=== PATIENT | male | born 1965 | race Caucasian/White ===

== ENCOUNTER 2018-07-10 10:58 | Outpatient (CLI) | payer BC ==
[~2018-07-10] VITALS: Ht 182.9 cm; Wt 87.3 kg
--- NOTE | ~2018-07-10 | HEMODYNAMI ---
PATIENT:NATALI RAPHAEL MEDICAL RECORD: [id number] : 63 LOCATION:D.CAT ADMISSION DATE: 07/10/18 Generatedon:07/10/201814:19 Patient name: NATALI RAPHAEL Patient #: [id number] SSN: : 1965 Date of study: 07/10/2018 Page: Of Hemodynamic Procedure Report Patient Data Patient Demographics Procedure consent was obtained First Name: NATALI Gender: Male Last Name: IJEOMA : 1965 [facility] Initial: TAMIKA Age: 52 year(s) Patient #: [id number] Race: Unknown Additional ID: [id number] Contact details Address: [address] [place] [address] State: [place] City: [facility] Zip code: [address] Past Medical History Allergies Allergen Reaction Date Comments Reported Other allergy 07/10/2018 Klonopin, Soma, Pravastatin Admission Admission Data Admission Date: 07/10/2018 Admission Time: 10:58 Height (in.): 72 BSA: 2.09 (m2) Height (cm.): 182.88 BMI: 25.9 (kg/m2) Weight (lbs.): 191 Weight (kg.): 86.64 Procedure Procedure Types Cath Procedure Diagnostic Procedure [facility] w/Coronaries Aortic Root Angiography Sedation Charges Moderate Sedation up to 15 minutes Procedure Description Procedure Date Procedure Date: 07/10/2018 Procedure Start Time: 14:00 Procedure End Time: 14:15 Procedure Staff Name Function Cassius Butt MD Performing Physician Lluvia Castro RT Monitor David Porter RN Nurse Aaron Arrington RT Scrub Procedure Data Cath Procedure Fluoroscopy Diagnostic fluoroscopy Total fluoroscopy Time: 2.4 time: 2.4 min min Diagnostic fluoroscopy Total fluoroscopy dose: 515 dose: 515 mGy mGy Contrast Material Contrast Material Type Amount (ml) Isovue 300 91 Entry Location Entry Primary Successful Side Size Upsize Upsize Entry Closure Succes sful Closure Location (Fr) 1 (Fr) 2 (Fr) Remarks Device Remarks Femoral Right 5 Fr Exoseal artery Estimated blood loss: 10 ml Diagnostic catheters Device Type Used For End Catheter Placement MULTIPACK JL 4.0 5Fr Procedure catheter MULTIPACK 3DRC 5Fr Procedure catheter MULTIPACK Pigtail 5 Fr Procedure catheter Procedure Complications No complications Procedure Medications Medication Administration Route Dosage 0.9% NaCl I.V. 100 ml/hr Oxygen etCO2 Nasal cannula 2 l/min Heparin Flush Bag added to field 2 bags (1000units/500ml NS) Lidocaine 2% added to field 20 Versed I.V. 2 mg Fentanyl I.V. 100 mcg Versed I.V. 2 mg Fentanyl I.V. 100 mcg Versed I.V. 1 mg Hemodynamics Rest BSA: 2.09 (m2) O2 Consumption: Estimated: 266.09 (ml/min) O2 Consumption indexed : Estimated:127.32 (ml/min/m) Heart Rate: 92 (bpm) Pressure Samples Time Site Value (mmHg) Purpose Heart Use Rate(bpm) 14:04 LV 129/-7,11 EDP 92 14:05 AO 114/65(86) Pullback 98 14:05 LV 135/1,10 Pullback 98 Gradients Valve Time Site 1 Site 2 Mean SEP/DFP Peak To Heart Use (mmHg) (sec/min) Peak Rate (mmHg) (bpm) Aortic 14:05 LV AO 19 25 21 98 135/1,10 114/65(86) Calculations Valve P-P Mean Valve Index Valve Source Name Gradient Area Flow (cm2) Aortic 21 19 21 19 Snapshots Pre Cath Intra NCS Post Cath Vital Signs Time Heart Resp SPO2 etCO2 NIBP (mmHg) Rhythm Pain Sedation Rate (ipm) (%) (mmHg) Status Level (bpm) 13:28:00 83 13 96 0 132/74(103) NSR 0 (11) 10(A) , No pain 13:32:08 81 17 92 0 138/81(104) NSR 0 (11) 10(A) , No pain 13:36:18 95 12 97 35.4 128/79(118) NSR 0 (11) 10(A) , No pain 13:40:26 77 11 95 31.6 124/77(86) NSR 0 (11) 10(A) , No pain 13:44:33 91 12 94 36.9 121/75(90) NSR 0 (11) 10(A) , No pain 13:48:42 89 12 95 29.3 136/68(109) NSR 0 (11) 10(A) , No pain 13:52:53 85 15 95 36.8 110/73(94) NSR 0 (11) 10(A) , No pain 13:56:55 101 13 95 36.1 129/75(89) NSR 0 (11) 10(A) , No pain 14:01:11 98 14 94 27 128/59(94) NSR 0 (11) 9(A) , No pain 14:05:21 100 14 95 37.6 110/74(94) NSR 0 (11) 9(A) , No pain 14:09:23 97 16 94 37.6 116/74(90) NSR 0 (11) 9(A) , No pain 14:13:26 91 16 94 35.4 124/75(88) NSR 0 (11) 10(A) , No pain Medications Time Medication Route Dose Verified Delivered Reason Notes Eff ectiveness by by 13:26:15 0.9% NaCl I.V. 100 David David Per ml/hr Charlotte Porter physician RN RN 13:26:25 Oxygen etCO2 2 David David for low 02 Nasal l/min Lorigan Lorigan sats cannula RN RN 13:26:37 Heparin Flush added 2 David David used for Bag to bags Lorigan Lorigan procedure (1000units/500ml field RN RN NS) 13:26:46 Lidocaine 2% added 20ml David David for local to vial Lorigan Lorigan anesthetic field RN RN 13:50:40 Versed I.V. 2 mg David David for Lorigan Lorigan sedation RN RN 13:50:49 Fentanyl I.V. 100 David David for mcg Lorigan Lorigan sedation RN RN 13:56:10 Versed I.V. 2 mg David David for Lorigan Lorigan sedation RN RN 13:56:19 Fentanyl I.V. 100 David David for mcg Lorigan Lorigan sedation RN RN 13:58:13 Versed I.V. 1 mg David David for Lorigan Lorigan sedation RN elementary school registrar Log Time Note 13:14:58 Patient Height : 72 inches 13:15:01 Patient Weight : 191 lbs 13:15:40 Diagnostic Cath status Elective 13:15:43 David Porter RN sent for patient. Start room use. 13:15:44 Time tracking: Regular hours (M-F 7:00 - 5:00) 13:16:38 Plan of Care:Hemodynamics will remain stable., Cardiac rhythm will remain stable., Comfort level will be maintained., Respiratory function will remain adequate., Patient/ family verbilizes understanding of procedure., Procedure tolerated without complication., Recovers from procedure without complications.. 13:16:59 Patient received from Pre/Post Procedure Room to CCL 2 Alert and oriented. Tansferred to table in Supine position. 13:17:00 Warm blankets applied, and jesús hugger turned on for patient comfort. 13:17:01 Correct patient and procedure confirmed by team. 13:17:03 Signed procedure consent form obtained from patient. 13:17:09 ECG and BP/O2 sat monitors applied to patient. 13:26:15 0.9% NaCl 100 ml/hr I.V. was administered by David Porter RN; Per physician; 13:26:25 Oxygen 2 l/min etCO2 Nasal cannula was administered by David Porter RN; for low 02 sats; 13:26:37 Heparin Flush Bag (1000units/500ml NS) 2 bags added to field was administered by David Porter RN; used for procedure; 13:26:46 Lidocaine 2% 20ml vial added to field was administered by David Porter RN; for local anesthetic; 13:26:54 Vital chart was started 13:31:40 H&P Date Dictated: 07/09/2018 Within 30 days and on chart., H&P Addendum completed by physician on day of procedure. (MUST COMPLETE FOR ALL OUTPATIENTS). 13:32:19 Pre-procedure instructions explained to patient. 13:32:25 Family in waiting room. 13:32:26 Patient NPO since Midnight. 13:33:11 Patient allergic to Other allergyKlonopin, Soma, Pravastatin 13:33:18 Is the patient allergic to Iodine/contrast media? No. 13:33:20 Was the patient premedicated? Yes 13:33:21 Is patient on blood thinner?No 13:33:23 Patient diabetic? No. 13:33:28 Snore? No 13:33:29 Sleep apnea? No 13:33:35 Dentures? No ? 13:33:41 Patient pain scale 0/10 ?. 13:33:46 IV patent on arrival in left forearm with 0.9% NaCl at [facility]. 13:33:50 Lab results completed and on chart. 13:34:08 Right groin area was prepped with chlora-prep and draped in sterile fashion 13:34:08 Alarms reviewed by R. N. 13:34:09 Sharps counted by scrub and verified by R.N. 13:34:10 Physician paged 13:34:16 Physician arrived 13:39:00 --------ALL STOP TIME OUT------ 13:39:01 Final Timeout: patient, procedure, and site verified with staff and physician. All members of the team are in agreement. 13:39:03 Right groin site verified by team. 13:39:19 Fire Safety Assessment: A--An alcohol-based skin anteseptic being used preoperatively., B--The operative or invasive procedure is being performed above the xiphoid process or in the oropharynx., C--Open oxygen or nitrous oxide is being used., D--An ESU, laser, or fiber-optic light is being used. 13:39:24 Physical assessment completed. ASA score P 2 - A patient with mild systemic disease as per Cassius Butt MD. 13:39:27 Sedation plan: IV Moderate Sedation Medication:Versed, Fentanyl 13:39:32 Use device set Femoral Dx 13:39:33 ACIST Syringe (53104) opened to sterile field. 13:39:34 Bag Decanter () opened to sterile field. 13:39:34 Medline Cath Pack ([id number]) opened to sterile field. 13:39:35 DIAGNOSTIC WIRE .035 260cm J wire ([id number]) opened to sterile field. 13:39:37 ACIST Hand Control (67967) opened to sterile field. 13:39:37 ACIST Manifold (15445) opened to sterile field. 13:39:38 DIAGNOSTIC Multipack 5Fr catheter set (PM7977) opened to sterile field. 13:39:39 Tegaderm 4 x 4 (1626W) opened to sterile field. 13:39:41 SHEATH 5FR [place] ([id number]) opened to sterile field. 13:40:17 Zero performed for pressure channel P1 13:40:27 Zero performed for pressure channel P1 13:40:33 Zero performed for pressure channel P1 13:40:41 Zero performed for pressure channel P1 13:50:40 Versed 2 mg I.V. was administered by David Porter RN; for sedation; 13:50:49 Fentanyl 100 mcg I.V. was administered by David Porter RN; for sedation; 13:56:10 Versed 2 mg I.V. was administered by David Porter RN; for sedation; 13:56:19 Fentanyl 100 mcg I.V. was administered by David Porter RN; for sedation; 13:58:13 Versed 1 mg I.V. was administered by David Porter RN; for sedation; 13:58:51 Zero performed for pressure channel P1 13:59:03 Zero performed for pressure channel P1 13:59:17 Zero performed for pressure channel P1 13:59:30 Procedure started. 13:59:30 Full Disclosure recording started 14:00:18 Local anesthetic to right femoral artery with Lidocaine 2% by Cassius Butt MD.INITIAL ACCESS ONLY 14:00:30 A 5 Fr sheath was inserted into the Right Femoral artery 14:02:29 A MULTIPACK JL 4.0 5Fr catheter was advanced over the wire and used for Procedure. 14:02:36 LCA angiography performed. 14:02:52 Catheter removed. 14:03:04 A MULTIPACK 3DRC 5Fr catheter was advanced over the wire and used for Procedure. 14:03:07 RCA angiography performed. 14:03:21 Catheter removed. 14:03:30 A MULTIPACK Pigtail 5 Fr catheter was advanced over the wire and used for Procedure. 14:03:36 LV angiography performed. 14:05:01 EF : 55 % 14:05:16 LV angiography performed. 14:05:22 LV hemodynamics recorded. 14:05:29 Aortic Root visualized 14:10:59 Catheter removed. 14:11:31 EXOSEAL 5Fr (EX500) opened to sterile field. 14:11:59 Sheath removed intact; hemostasis achieved with Exoseal to the Right Femoral artery. 14:12:02 Procedure ended.(Physican Out) 14:12:31 Fluoroscopy time 02.40 minutes. 14:12:37 Flurop Dose total: 515 14:12:38 Fluoroscopy dose: 515 mGy 14:12:42 Contrast amount:Isovue 300 91ml. 14:12:43 Sharps counted by scrub and verified by R.N. 14:12:45 Insertion/operative site no bleeding no hematoma. 14:12:49 Post right femoral artery:stable 14:12:51 Post Procedure Pulses reassessed and unchanged 14:12:55 Post-procedure physical assessment completed. ASA score P 2 - A patient with mild systemic disease as per Cassius Butt MD. 14:13:01 Post procedure rhythm: unchanged. 14:13:04 Estimated blood loss: 10 ml 14:13:06 Post procedure instruction explained to patient.Patient verbalizes understanding. 14:13:33 Procedure type changed to Cath procedure, Diagnostic procedure, LHC, LHC w/Coronaries, Aortic Root Angiography, Sedation Charges, Moderate Sedation up to 15 minutes 14:13:34 Procedure and supply charges have been captured, reviewed, submitted and are correct. 14:13:55 Procedure Complication : No complications 14:14:16 Vital chart was stopped 14:14:45 See physician's report for complete and final results. 14:14:47 Report given to Pre/Post Procedure Room. 14:15:05 Patient transfered to Pre/Post Procedure Room with Stretcher. 14:15:07 Procedure ended. 14:15:07 Full Disclosure recording stopped 14:15:16 End room use (Document Last) Device Usage Item Name Manufacture Quantity Catalog Hospital Part Current Minimal L ot# / Number Charge Number Stock Stock Serial# Code ACIST Acist 1 16419 [id number] 922344 618826 20 Syringe Medical (40963) Systems Inc Bag Microtek 1 250613 91101 021387 5 Decanter Medical Inc. () Medline Medline 1 [id number] 659264 79450 948913 5 Cath Pack ([id number]) DIAGNOSTIC St Mario 1 867675 135596 447265 934409 30 WIRE .035 260cm J wire (875079) ACIST Hand Acist 1 03129 459329 222155 428661 5 Control Medical (27076) Systems Inc ACIST Acist 1 74724 669660 756166 553288 5 Manifold Medical (65909) Systems Inc DIAGNOSTIC Cardinal 1 XS0144 007865 56136 387439 30 TagSeats 5Fr catheter set (YJ5544) Tegaderm 4 3M 1 1626W 321179 933973 629847 5 x 4 (1626W) SHEATH 5FR Terumo 1 IXZ097 819883 099602 961248 5 [place] (NWT460) MULTIPACK Cardinal 1 201279 5 JL 4.0 5Fr Health catheter MULTIPACK Cardinal 1 387213 5 3DRC 5Fr Health catheter MULTIPACK Cardinal 1 865180 5 Pigtail 5 Health Fr catheter EXOSEAL 5Fr Cardinal 1 EX500 787439 651134 597784 10 (EX500) Health Signature Audit [place] Stage Time Signature Unsigned Intra-Procedure 07/10/2018 Lluvia Castro 2:19:46 PM RT(R) Signatures Monitor : Lluvia Castro Signature : RT Date : Time : [id number] [place] [address]
[2018-07-10] MEDS ORDERED: ZANAFLEX4 MG PO (11:19)
[2018-07-10] MEDS ORDERED: VOLTAREN75 MG PO (11:19)
[2018-07-10] MEDS ORDERED: OMEPRAZOLE40 MG PO (11:19)
[2018-07-10 11:35] VITALS: BP 137/81; Ht 182.9 cm; Wt 87.3 kg
[2018-07-10 11:41] LABS: BASOPHILS 0.2 % (0-2); HEMATOCRIT 45.6 % (42.0-54.0); HEMOGLOBIN 15.4 g/dL (13.5-17.5); LYMPHOCYTES 24.5 % (15-50); MCH 28.2 pg (26.0-34.0); MCHC 33.8 g/dL (31.0-37.0); MCV 83.4 fL (80.0-100.0); MONOCYTES 8.4 % (2-11); NEUTROPHILS 63.9 % (40-80); PLATELET COUNT 200 10x3/uL (130-400); RBC 5.47 10x6/uL (4.20-6.10); RDW 14.9 % (11.5-14.5); WBC 4.3 10x3/uL (4.8-10.8)
[2018-07-10 11:52] LABS: ANION GAP 16.5 mmol/L (8-16); CALCIUM 9.2 mg/dL (8.5-10.1); CARBON DIOXIDE 24.4 mmol/L (21.0-32.0); CREATININE - SERUM 1.3 mg/dL (0.6-1.3); POTASSIUM - SERUM 3.9 mmol/L (3.5-5.1)
--- NOTE | 2018-07-10 14:50 | NUR ---
2L NC, NO RESP DISTRESS. RIGHT GROIN 5F EXOSEAL CDI, NO BLEEDING OR HEMATOMA NOTED. NO C/O PAIN OR NAUSEA. VSS. FAMILY AT BEDSIDE, CALL LIGHT WITHIN REACH.
--- NOTE | 2018-07-10 15:05 | NUR ---
RIGHT GROIN 6F EXOSEAL CDI, NO BLEEDING OR HEMATOMA NOTED. ROOM AIR WITH NO RESP DISTRESS. VSS. WILL CONTINUE TO MONITOR.
--- NOTE | 2018-07-10 15:35 | NUR ---
HOB ELEVATED 30 DEGREES. RIGHT GROIN 5F EXOSEAL CDI, NO BLEEDING OR HEMATOMA NOTED. SIPPING ON DRINK AND EATING SANDWICH WITH NO C/O NAUSEA. VSS. WILL CONTINUE TO MONITOR.
--- NOTE | 2018-07-10 16:10 | NUR ---
LEFT PIV D/C'D WITH CATHETER INTACT, BAND AID TO SITE. UP TO BEDSIDE TO GET DRESSED. AMBULATED TO RESTROOM.
--- NOTE | 2018-07-10 16:17 | NUR ---
DISCHARGE INSTRUCTIONS GIVEN, VERBALIZED UNDERSTANDING. RIGHT GROIN 5F EXOSEAL CDI, NO BLEEDING NOTED.
--- NOTE | 2018-07-10 16:25 | NUR ---
TAKEN OUT VIA WHEELCHAIR BY CATH JET ENGINE MECHANIC. LEFT FACILITY WITH FAMIL AND ALL PERSONAL BELONGINGS.
== END 2018-07-10 16:25 | disposition home or self-care (01) ==
LOC: D.CATH 10:58
PROVIDERS: Internal Medicine Cardiovascular Disease
DX: I25.10 Atherosclerotic heart disease of native coronary artery without angina pectoris (principal); I35.1 Nonrheumatic aortic (valve) insufficiency

== ENCOUNTER 2018-07-23 11:05 | Outpatient (CLI) | payer BC ==
[~2018-07-23] VITALS: Ht 182.9 cm; Wt 86.4 kg
--- NOTE | ~2018-07-23 | HEMODYNAMI ---
PATIENT:NATALI RAPHAEL MEDICAL RECORD: [id number] : 63 LOCATION:DROSA ADMISSION DATE: 07/23/18 Generatedon:07/23/201813:20 Patient name: NATALI RAPHAEL Patient #: [id number] SSN: : 1965 Date of study: 07/23/2018 Page: Of Hemodynamic Procedure Report Patient Data Patient Demographics Procedure consent was obtained First Name: NATALI Gender: Male Last Name: IJEOMA : 1965 [facility] Initial: TAMIKA Age: 52 year(s) Patient #: [id number] Race: Unknown Additional ID: [id number] Contact details Address: [address] [place] [address] State: [place] City: [facility] Zip code: [address] Past Medical History Allergies Allergen Reaction Date Comments Reported Other allergy 07/10/2018 Klonopin, Soma, Pravastatin Admission Admission Data Admission Date: 07/23/2018 Admission Time: 11:05 Admit Source: Other Lab Results Lab Result Date: 07/23/2018 Lab Result Time: 0:00 CBC Name Units Result Min Max Hemoglobin g/dl 15.5 --(-*--)-- 13.5 17.5 Procedure Procedure Types Cath Procedure Diagnostic Procedure GERALDINE Procedure Description Procedure Date Procedure Date: 07/23/2018 Procedure Start Time: 13:02 Procedure End Time: 13:16 Procedure Staff Name Function Inderjit Valle MD Performing Physician Iban Abreu MD Additional personnel Amrik Davis RT Monitor Gail Coello RT Java Development Manager Belén Bermudez RN Nurse Fidel Clinton Tie In Machine Operator Procedure Data Cath Procedure Fluoroscopy Diagnostic fluoroscopy Total fluoroscopy Time: 0 time: 0 min min Diagnostic fluoroscopy Total fluoroscopy dose: 0 dose: 0 mGy mGy Procedure Complications No complications Procedure Medications Medication Administration Route Dosage 0.9% NaCl I.V. 100 ml/hr Oxygen etCO2 Nasal cannula 2 l/min Refer to Anesthesia Notes for Sedation Medications Hurricaine [place] P.O. 2 Sprays Hemodynamics Rest HGB: 15.5 (g/dl) Heart Rate: 137 (bpm) Snapshots Pre Cath Intra NCS Post Cath Vital Signs Time Heart Resp SPO2 etCO2 NIBP (mmHg) Rhythm Pain Sedation Rate (ipm) (%) (mmHg) Status Level (bpm) 12:44:45 73 16 98 32 163/86(123) NSR 0 (11) 10(A) , No pain 12:49:01 71 13 99 32 153/83(124) NSR 0 (11) 10(A) , No pain 12:53:23 67 14 99 28 154/72(136) NSR 0 (11) 10(A) , No pain 12:57:43 65 13 100 27 153/83(119) NSR 0 (11) 10(A) , No pain 13:02:02 77 13 99 33.1 139/78(107) NSR 0 (11) 10(A) , No pain 13:06:11 70 12 97 15.8 112/60(75) NSR 0 (11) 5(A) , No pain 13:10:21 72 14 97 28 101/52(75) NSR 0 (11) 5(A) , No pain 13:14:29 75 26 98 33.2 120/58(91) NSR 0 (11) 10(A) , No pain Medications Time Medication Route Dose Verified Delivered Reason Notes Effectiv eness by by 12:47:39 0.9% NaCl I.V. 100 Inderjit Melissa used for ml/hr [facility] Demetrio Bermudez procedure MD HANNA 12:47:48 Oxygen etCO2 2 Inderjit Guerreroa used for Nasal l/min [facility] Demetrio Bermudez procedure cannula MD HANNA 12:47:55 Refer to Inderjit Melissa Anesthesia [facility] Demetrio Bermudez Notes for MD HANNA Sedation Medications 12:48:11 Hur[place]aine P[address]O. [address] Inderjit Rocayla used for [place] Sprays St Demetrio Bermudez procedure tick sewer Log Time Note 12:35:12 Admit Source: Other 12:36:02 Diagnostic Cath status Elective 12:36:04 Amrik Davis RT(R) sent for patient. Start room use. 12:36:06 Time tracking: Regular hours (M-F 7:00 - 5:00) 12:36:10 Plan of Care:Hemodynamics will remain stable., Cardiac rhythm will remain stable., Comfort level will be maintained., Respiratory function will remain adequate., Patient/ family verbilizes understanding of procedure., Procedure tolerated without complication., Recovers from procedure without complications.. 12:40:29 Patient received from Pre/Post Procedure Room to CCL 3 Alert and oriented. Tansferred to table in Supine position. 12:40:30 Warm blankets applied, and jesús hugger turned on for patient comfort. 12:40:30 Correct patient and procedure confirmed by team. 12:40:31 Signed procedure consent form obtained from patient. 12:40:32 ECG and BP/O2 sat monitors applied to patient. 12:43:27 Lab Result : Hemoglobin 15.5 g/dl 12:43:31 Baseline sample Acquired. 12:43:31 Vital chart was started 12:43:36 Rhythm: sinus rhythm 12:43:37 Full Disclosure recording started 12:43:42 H&P Date Dictated: 07/23/2018 Within 30 days and on chart.. 12:43:42 Pre-procedure instructions explained to patient. 12:43:43 Pre-op teaching completed and patient verbalized understanding. 12:44:04 Family in waiting room. 12:44:07 Patient NPO since Midnight. 12:44:32 Is patient on blood thinner?No 12:44:34 Patient diabetic? No. 12:44:35 ----Pre-sedation anethsthesia assessment.---- 12:44:38 Previous problem with sedation/anesthesia? No ? 12:44:39 Snore? No 12:44:40 Sleep apnea? No 12:44:41 Deviated septum? No 12:44:43 Opens mouth fully? Yes 12:44:44 Sticks out tongue? Yes 12:44:47 Airway obstruction? No ? 12:44:49 Dentures? No ? 12:44:58 Patient pain scale 0/10 ?. 12:45:08 Baseline sample Acquired. 12:45:21 IV patent on arrival in left forearm with 0.9% NaCl at 10ml/hr. 12:45:24 Lab results completed and on chart. 12:45:36 Alarms reviewed by R. N. 12:45:37 Sharps counted by scrub and verified by R.N. 12:47:39 0.9% NaCl 100 ml/hr I.V. was administered by Belén Bermudez RN; used for procedure; 12:47:48 Oxygen 2 l/min etCO2 Nasal cannula was administered by Belén Bermudez RN; used for procedure; 12:47:55 Refer to Anesthesia Notes for Sedation Medications was administered by Belén Bermudez RN; ; 12:48:11 Hurricaine [place] 2 Sprays P.O. was administered by Belén Bermudez RN; used for procedure; 13:01:32 Physician arrived 13:01:32 --------ALL STOP TIME OUT------ 13:01:33 Final Timeout: patient, procedure, and site verified with staff and physician. All members of the team are in agreement. 13:01:39 Fire Safety Assessment: A--An alcohol-based skin anteseptic being used preoperatively., C--Open oxygen or nitrous oxide is being used., D--An ESU, laser, or fiber-optic light is being used. 13:01:43 Physical assessment completed. ASA score P 2 - A patient with mild systemic disease as per Inderjit Valle MD. 13:01:49 Sedation plan: IV Moderate Sedation Medication:Propofol 13:01:52 Iban Abreu MD present and monitoring patient for TIVA. 13:02:01 Procedure started. 13:02:30 GERALDINE 13:02:58 Fidel Clinton Earth Science Professor present for GERALDINE. 13:03:00 GERALDINE started. 13:10:28 GERALDINE completed. 13:10:38 Procedure ended.(Physican Out) 13:15:47 Fluoroscopy time 00.00 minutes. 13:15:49 Fluoroscopy dose: 0 mGy 13:15:49 Flurop Dose total: 0 13:15:54 Insertion/operative site no bleeding no hematoma. 13:16:01 Post procedure rhythm: sinus rhythm 13:16:03 Post procedure instruction explained to patient.Patient verbalizes understanding. 13:16:18 Procedure and supply charges have been captured, reviewed, submitted and are correct. 13:16:23 Procedure Complication : No complications 13:16:26 Vital chart was stopped 13:16:26 See physician's report for complete and final results. 13:16:35 Report given to Pre/Post Procedure Room. 13:16:39 Patient transfered to Pre/Post Procedure Room with Stretcher. 13:16:41 Procedure ended. 13:16:41 Full Disclosure recording stopped 13:16:45 End room use (Document Last) Signature Audit Cut Off Stage Time Signature Unsigned Intra-Procedure 07/23/2018 Amrik Davis RT(Brunilda) 1:20:05 PM Signatures Monitor : Amrik Davis RT Signature : Date : Time : [address] [place] [address]
[~2018-07-23 11:05] MED LIST: OMEPRAZOLE40 MG PO; VOLTAREN75 MG PO; ZANAFLEX4 MG PO
[2018-07-23 11:40] VITALS: Ht 182.9 cm; Wt 86.4 kg
[2018-07-23 12:09] LABS: ANION GAP 14.8 mmol/L (8-16); CALCIUM 8.8 mg/dL (8.5-10.1); CARBON DIOXIDE 25.2 mmol/L (21.0-32.0); CREATININE - SERUM 1.3 mg/dL (0.6-1.3)
[2018-07-23 12:13] LABS: HEMOGLOBIN 15.5 g/dL (13.5-17.5); LYMPHOCYTES 31.4 % (15-50); MCH 28.8 pg (26.0-34.0); MCHC 34.4 g/dL (31.0-37.0); MCV 83.5 fL (80.0-100.0); MEAN PLATELET VOLUME 10.5 fL (7.4-10.4); NEUTROPHILS 65.1 % (40-80); PLATELET COUNT 184 10x3/uL (130-400); RBC 5.39 10x6/uL (4.20-6.10); RDW 14.6 % (11.5-14.5); WBC 3.6 10x3/uL (4.8-10.8)
--- NOTE | 2018-07-23 13:40 | NUR ---
ROOM AIR, NO RESP DISTRESS. NO C/O PAIN OR NAUSEA. VSS. FAMILY AT BEDSIDE, CALL LIGHT WITHIN REACH.
--- NOTE | 2018-07-23 14:10 | NUR ---
LEFT PIV D/C'D WITH CATHETER INTACT, BAND AID TO SITE. UP TO BEDSIDE TO GET DRESSED. AMBULATED TO RESTROOM.
--- NOTE | 2018-07-23 14:18 | NUR ---
DISCHARGE INSTRUCTIONS GIVEN, VERBALIZED UNDERSTANDING.
--- NOTE | 2018-07-23 14:25 | NUR ---
TAKEN OUT VIA WHEELCHAIR BY CATH MILL TENDER WARM UP. LEFT FACILITY WITH FAMILY AND ALL PERSONAL BELONGIGNS.
--- NOTE | 2018-07-27 10:16 | TEE ---
PATIENT:NATALI RAPHAEL MEDICAL RECORD: [id number] LOCATION:D.CAT AGE OF PATIENT: 52 ADMISSION DATE: 07/23/18 SEX: M REFERRING PHYSICIAN: INTERPRETING PHYSICIAN: LUIS ESCALONA MD TRANSESOPHAGEAL ECHOCARDIOGRAM Date: 07/23/18 GERALDINE CHARGE Y INDICATIONS: AORTIC INSUFFICIENCY PREMEDICATIONS: PATIENT'S RESPONSE PROCEDURE DOPPLER MEASUREMENTS: LVIT LA PA RA LVOT RVOT Asc. Ao AV Gradient Peak AV Mean AV Area MV Gradient Peak MV Mean MV Area INTERPRETATION: Doppler: 2-D: COLOR FLOW DOPPLER NORMAL SALINE STUDY: MISCELLANOUS: DIAGNOSIS: PLAN: Napper Grinder:3 Dr. Chatterjee Washer Machine: Carly RIDER COMMENTS: MAK PATIENT DATE OF SERVICE: 07/23/2018 PROCEDURE: Transesophageal note. DESCRIPTION OF PROCEDURE: After general sedation via TIVA transesophageal Omniplane probe without difficulty. No LVH. LV internal dimension appeared dilated. LV in the short axis view appears to be hypokinetic, but appears to be closer to normal in the long axis, estimated EF to be 50%. Aortic valve is functionally tricuspid with under developed cusp. There is at least moderate TRANSESOPHAGEAL ECHOCARDIOGRAM REPORT [id number] WILLIAMS RAPHAEL plus AI, this an eccentric direct affecting the mitral valve and may be physiologically creating mitral stenosis. Left atrium appears normal. Left atrial appendage appears normal. Good contractility. Mitral valve appears normal with mild MR. Right-sided chambers are grossly normal. Mild TR. At the end of procedure, transesophageal Omniplane probe was turned posteriorly. This shows minimal atherosclerotic debris in the ascending aorta. TRANSINT:[id number] Voice Confirmation ID: [id number] DOCUMENT ID: [id number] at 1016 CC: [id number] DICTATION DATE: 07/23/18 1319 BUS VAN DRIVER: 07/23/18 2040 DEP CLI 07/23/18 [place] [id number] [place] [id number]
== END 2018-07-23 14:25 | disposition home or self-care (01) ==
LOC: D.CATH 11:05
PROVIDERS: ATTEND Internal Medicine Cardiovascular Disease
DX: I35.1 Nonrheumatic aortic (valve) insufficiency (principal); Z01.812 Encounter for preprocedural laboratory examination

== ENCOUNTER → 2018-07-29 14:28 | Outpatient (CLI) | payer BC ==
[2018-07-23 11:40] VITALS: BMI 25.8
== END | disposition home or self-care (01) ==
LOC: D.CT 14:28
PROVIDERS: ATTEND Thoracic Surgery (Cardiothoracic Vascular Surgery)
DX: I71.4 Abdominal aortic aneurysm, without rupture (principal)

== ENCOUNTER 2018-08-14 06:29 | Outpatient (CLI) | payer BC ==
[~2018-08-14] VITALS: Ht 182.9 cm; Wt 86.4 kg
--- NOTE | ~2018-08-14 | HEMODYNAMI ---
PATIENT:NATALI RAPHAEL MEDICAL RECORD: [id number] : 63 LOCATION:[facility] ADMISSION DATE: 08/14/18 Generatedon:08/14/20189:07 Patient name: NATALI RAPHAEL Patient #: [id number] SSN: : 1965 Date of study: 08/14/2018 Page: Of Hemodynamic Procedure Report Patient Data Patient Demographics Procedure consent was obtained First Name: NATALI Gender: Male Last Name: IJEOMA : 1965 [facility] Initial: TAMIKA Age: 52 year(s) Patient #: [id number] Race: Unknown Additional ID: [id number] Contact details Address: [address] [place] [address] State: [place]: [facility] [place] Zip code: [address] Past Medical History Allergies Allergen Reaction Date Comments Reported Other allergy 07/10/2018 Klonopin, Soma, Pravastatin Other allergy 08/14/2018 Klonopin, Pravastatin, Soma Admission Admission Data Admission Date: 08/14/2018 Admission Time: 6:29 Admit Source: Other Lab Results Lab Result Date: 08/14/2018 Lab Result Time: 6:50 Biochemistry Name Units Result Min Max BUN mg/dl 33 --(----)-* 7 18 Creatinine mg/dl 1.4 --(----)*- 0.6 1.3 CBC Name Units Result Min Max Hematocrit % 44.7 --(*---)-- 42 54 Hemoglobin g/dl 15.1 --(-*--)-- 13.5 17.5 Procedure Procedure Types Cath Procedure PCI Procedure Coronary Stent Coronary Stent Initial Procedure Description Procedure Date Procedure Date: 08/14/2018 Procedure Start Time: 8:51 Procedure End Time: 9:06 Procedure Staff Name Function Cassius Butt MD Performing Physician Aaron Arrington RT Monitor Peyton Arcos RT Scrub David Porter RN Nurse Gualberto Cisneros RN Fire Regulator Procedure Data Cath Procedure Fluoroscopy Diagnostic fluoroscopy Total fluoroscopy Time: 3.4 time: 3.4 min min Diagnostic fluoroscopy Total fluoroscopy dose: 448 dose: 448 mGy mGy Contrast Material Contrast Material Type Amount (ml) Isovue 300 44 Entry Location Entry Primary Successful Side Size Upsize Upsize Entry Closure Quinteros ccessful Closure Location (Fr) 1 (Fr) 2 (Fr) Remarks Device Remarks Radial Right 6 Fr Mechanical artery Short Compression Estimated blood loss: 10 ml Procedure Complications No complications Procedure Medications Medication Administration Route Dosage 0.9% NaCl I.V. 100 ml/hr Oxygen etCO2 Nasal cannula 2 l/min Heparin Flush Bag added to field 2 bags (1000units/500ml NS) Lidocaine 2% added to field 20 Radial Cocktail added to field 1 syringe (Verapomil 2mg/Nitro 400mcg/Heparin 1500units) Versed I.V. 2 mg Fentanyl I.V. 100 mcg Radial Cocktail I.A. 1 syringe (Verapomil 2mg/Nitro 400mcg/Heparin 1500units) Versed I.V. 1 mg Heparin Bolus I.V. 9500 units Effient P.O. 60 mg Hemodynamics Rest HGB: 15.1 (g/dl) Heart Rate: 65 (bpm) Snapshots Pre Cath Intra NCS Post Cath Vital Signs Time Heart Resp SPO2 etCO2 NIBP Rhythm Pain Sedation Rate (ipm) (%) (mmHg) (mmHg) Status Level (bpm) 8:41:09 73 10 100 0 130/78(91) NSR 0 (11) 10(A) , No pain 8:45:21 64 19 97 0 110/67(96) NSR 0 (11) 10(A) , No pain 8:49:25 70 16 94 0 106/66(92) NSR 0 (11) 10(A) , No pain 8:53:29 89 18 94 0 110/60(83) NSR 0 (11) 9(A) , No pain 8:57:37 72 18 92 0 107/55(79) NSR 0 (11) 9(A) , No pain 9:01:42 70 16 94 0 105/61(95) NSR 0 (11) 10(A) , No pain 9:05:46 74 12 94 0 102/59(82) NSR 0 (11) 10(A) , No pain Medications Time Medication Route Dose Verified Delivered Reason Note s Effectiveness by by 8:39:20 0.9% NaCl I.V. 100 David David Per physician ml/hr Charlotte Porter RN RN 8:39:29 Oxygen etCO2 2 l/min David David for low 02 sats Nasal Charlotte Porter cannula RN RN 8:39:40 Heparin Flush added 2 bags David David used for Bag to Lorsubhash Porter procedure (1000units/500ml field RN RN NS) 8:39:49 Lidocaine 2% added 20ml David David for local to vial Lorigan Lorsubhash anesthetic field RN RN 8:40:01 Radial Cocktail added 1 David David used for (Verapomil to syringe Lorigan Kathyigan procedure 2mg/Nitro field RN RN 400mcg/Heparin 1500units) 8:51:11 Versed I.V. 2 mg David David for sedation Charlotte Porter RN RN 8:51:18 Fentanyl I.V. 100 mcg David David for sedation Charlotte Porter RN RN 8:53:16 Radial Cocktail I.A. 1 David Cassius for (Verapomil syringe Charlotte Butt MD vasodilation 2mg/Nitro RN 400mcg/Heparin 1500units) 8:53:28 Versed I.V. 1 mg David David for sedation Charlotte Porter RN RN 8:55:51 Heparin Bolus I.V. 9,500 David David for units Lorigan Charlotte anticoagulation RN RN 9:04:21 Effient P.O. 60 mg David David for Charlotte Porter antiplatelet RN RN therapy Procedure Log Time Note 8:14:26 Informed consent obtained and on chart 8:14:30 Admit Source: Other 8:14:43 Diagnostic Cath status Elective 8:14:47 Time tracking: Regular hours (M-F 7:00 - 5:00) 8:14:50 Plan of Care:Hemodynamics will remain stable., Cardiac rhythm will remain stable., Comfort level will be maintained., Respiratory function will remain adequate., Patient/ family verbilizes understanding of procedure., Procedure tolerated without complication., Recovers from procedure without complications.. 8:15:36 H&P Date Dictated: 08/06/2018 Within 30 days and on chart., H&P Addendum completed by physician on day of procedure. (MUST COMPLETE FOR ALL OUTPATIENTS). 8:23:23 Gualberto Cisneros RN sent for patient. Start room use. 8:31:16 Patient received from Pre/Post Procedure Room to CCL 2 Alert and oriented. Tansferred to table in Supine position. 8:31:17 Warm blankets applied, and jesús hugger turned on for patient comfort. 8:31:18 Correct patient and procedure confirmed by team. 8:31:19 ECG and BP/O2 sat monitors applied to patient. 8:31:20 Pre-procedure instructions explained to patient. 8:31:20 Pre-op teaching completed and patient verbalized understanding. 8:31:21 Family in waiting room. 8:31:23 Patient NPO since Midnight. 8:31:47 Patient allergic to Other allergyKlonopin, Pravastatin, Soma 8:31:49 Is the patient allergic to Iodine/contrast media? No. 8:39:20 0.9% NaCl 100 ml/hr I.V. was administered by David Porter RN; Per physician; 8:39:29 Oxygen 2 l/min etCO2 Nasal cannula was administered by David Porter RN; for low 02 sats; 8:39:40 Heparin Flush Bag (1000units/500ml NS) 2 bags added to field was administered by David Porter RN; used for procedure; 8:39:49 Lidocaine 2% 20ml vial added to field was administered by David Porter RN; for local anesthetic; 8:40:01 Radial Cocktail (Verapomil 2mg/Nitro 400mcg/Heparin 1500units) 1 syringe added to field was administered by David Porter RN; used for procedure; 8:40:04 Vital chart was started 8:45:12 Is patient on blood thinner?No 8:45:13 Patient diabetic? No. 8:45:15 Previous problem with sedation/anesthesia? No ? 8:45:16 Snore? Yes 8:45:17 Sleep apnea? No 8:45:17 Deviated septum? No 8:45:24 Opens mouth fully? Yes 8:45:24 Sticks out tongue? Yes 8:45:26 Airway obstruction? No ? 8:45:27 Dentures? No ? 8:45:30 Pre procedure: right dorsailis pedis pulse 2+ Normal; easily identifiable; not easily obliterated 8:45:32 Modified Toño's test Ulnar < 7 seconds 8:45:33 Patient pain scale 0/10 ?. 8:45:36 IV patent on arrival in left hand with 0.9% NaCl at [facility]. 8:47:27 Lab Result : BUN 33 mg/dl 8:47:28 Lab Result : Creatinine 1.4 mg/dl 8:47:28 Lab Result : Hemoglobin 15.1 g/dl 8:47:28 Lab Result : Hematocrit 44.7 % 8:47:30 Lab results completed and on chart. 8:47:32 Right Radial & Right Groin area was prepped with chlora-prep and draped in sterile fashion 8:47:33 Alarms reviewed by R. N. 8:47:33 Sharps counted by scrub and verified by R.N. 8:47:35 Use device set Radial Dx or PCI 8:47:36 ACIST Syringe (65060) opened to sterile field. 8:47:36 Medline Cath Pack ([id number]) opened to sterile field. 8:47:37 Bag Decanter (2002) opened to sterile field. 8:47:37 ACIST Hand Control (29619) opened to sterile field. 8:47:38 ACIST Manifold (93734) opened to sterile field. 8:47:38 Tegaderm 4 x 4 (1626W) opened to sterile field. 8:47:39 MBrace Wrist Support ([id number]) opened to sterile field. 8:47:40 SHEATH 6FR Slender (80-4797) opened to sterile field. 8:47:40 DIAGNOSTIC WIRE .035 260cm J wire (255754) opened to sterile field. 8:47:43 NEEDLE Cook 21G 4cm Radial (D19481) opened to sterile field. 8:47:54 TUBING High Pressure Extension Tubing (Butt) (SD4850Z) opened to sterile field. 8:47:55 BMW 300cm [place] 2 J wire ([id number]) opened to sterile field. 8:47:55 INFLATOR Merit BasixCompak (BA2757) opened to sterile field. 8:48:01 Baseline sample Acquired. 8:48:04 Rhythm: sinus rhythm 8:48:05 Full Disclosure recording started 8:48:11 Physician arrived 8:48:11 --------ALL STOP TIME OUT------ 8:48:12 Final Timeout: patient, procedure, and site verified with staff and physician. All members of the team are in agreement. 8:48:13 Right Radial & Right Groin site verified by team. 8:48:16 Maximum allowable Isovue 300 dose 300ml. Physician notified. (300ml for normal creatinines. For patients with creatinine of 1.7 or higher multiply weight(kg) x 5 divided by creatinine.) 8:48:20 Fire Safety Assessment: A--An alcohol-based skin anteseptic being used preoperatively., C--Open oxygen or nitrous oxide is being used., D--An ESU, laser, or fiber-optic light is being used. 8:48:23 Physical assessment completed. ASA score P 2 - A patient with mild systemic disease as per Cassius Butt MD. 8:48:25 Sedation plan: IV Moderate Sedation Medication:Versed, Fentanyl 8:51:06 Zero performed for pressure channel P1 8:51:11 Versed 2 mg I.V. was administered by David Porter RN; for sedation; 8:51:18 Fentanyl 100 mcg I.V. was administered by David Porter RN; for sedation; 8:51:48 Procedure started. 8:51:51 Local anesthetic to right radial artery with Lidocaine 2% by Cassius Butt MD.INITIAL ACCESS ONLY 8:51:58 A 6 Fr Short sheath was inserted into the Right Radial artery 8:53:16 Radial Cocktail (Verapomil 2mg/Nitro 400mcg/Heparin 1500units) 1 syringe I.A. was administered by Cassius Butt MD; for vasodilation; 8:53:28 Versed 1 mg I.V. was administered by David Porter RN; for sedation; 8:54:07 GUIDE 6FR XBLAD 3.5 catheter ([id number]) opened to sterile field. 8:54:14 6 Fr xblad 3.5 guide catheter was inserted over the wire 8:55:51 Heparin Bolus 9,500 units I.V. was administered by David Porter RN; for anticoagulation; 8:56:50 BMW wire advanced. 8:57:49 Wire advanced across lesion. 8:59:54 Place stent Inflation Number: 1 A KAITLIN OTW 3.5 x 12 stent ([id number]) was prepped and advanced across the Prox LAD. The stent was deployed at 13 TELMA for 0:10 (min:sec). 9::59 Stent catheter was removed intact over wire. 9::59 Wire removed. 9:01:00 Guide catheter removed. 9:01:16 TR BAND Standard ([id number]) opened to sterile field. 9:01:25 Sheath removed intact; hemostasis achieved with Mechanical Compression to the Right Radial artery. 9::27 Procedure ended.(Physican Out) 9:03:31 Fluoroscopy time 03.40 minutes. 9:03:38 Flurop Dose total: 448 9::38 Fluoroscopy dose: 448 mGy 9::55 Contrast amount:Isovue 300 44ml. 9::56 Sharps counted by scrub and verified by R.N. 9::59 TR band inflated with 12cc of air. 9:04:00 Insertion/operative site no bleeding no hematoma. 9:04:21 Effient 60 mg P.O. was administered by David Porter RN; for antiplatelet therapy; 9:04:45 Post right radial artery:stable, soft, clean and dry 9:04:50 Post Procedure Pulses reassessed and unchanged 9:04:52 Post-procedure physical assessment completed. ASA score P 2 - A patient with mild systemic disease as per Cassius Butt MD. 9:04:54 Post procedure rhythm: unchanged. 9:04:58 Estimated blood loss: 10 ml 9:05:00 Post procedure instruction explained to patient.Patient verbalizes understanding. 9:05:00 Patient needs reinforcement of post procedure teaching. 9:05:50 Procedure and supply charges have been captured, reviewed, submitted and are correct. 9:05:53 Procedure Complication : No complications 9:05:55 Vital chart was stopped 9:05:55 See physician's report for complete and final results. 9:05:57 Report given to Pre/Post Procedure Room. 9:05:59 Patient transfered to Pre/Post Procedure Room with Stretcher. 9:06:00 Procedure ended. 9:06:00 Full Disclosure recording stopped 9:06:04 End room use (Document Last) Intervention Summary Intervention Notes Time ActionType Lesion and Equipment Action# Pressure Duration Attributes Used 8:59:54 Place stent Prox LAD KAITLIN OTW 3.5 1 13 00:10 x 12 stent ([id number]) Device Usage Item Name Manufacture Quantity Catalog Hospital Part Current Mini mal Lot# / Number Charge Number Stock Stock Serial# Code ACIST Syringe Acist 1 45591 116590 038750 087076 20 (25972) Medical Systems Inc Medline Cath Medline 1 [id number] 587816 90471 451307 5 Pack ([id number]) Bag Decanter Microtek 1 2001S 087291 32050 476365 5 (2001S) Medical Inc. ACIST Hand Acist 1 13482 955715 770839 975372 5 Control Medical (28436) Systems Inc ACIST Acist 1 61071 050791 232045 128291 5 Manifold Medical (11279) Systems Inc Tegaderm 4 x 3M 1 1626W 430397 159244 036119 5 4 (1626W) MBrace Wrist Advanced 1 140-0250-00 801921 15092 057889 5 Support Vascular (849917953) Dynamics SHEATH 6FR Terumo 1 [id number] 137668 556360 895641 5 Slender (80-1060) DIAGNOSTIC St Mario 1 419600 060892 444139 357564 30 WIRE .035 260cm J wire (928031) NEEDLE Cook Cook Medical 1 P28307 368272 511160 248809 5 21G 4cm Radial (G03354) TUBING High Merit 1 [id number] 379022 84882 419301 10 Pressure Medical Extension Tubing (Butt) ([id number]) BMW 300cm Stanley 1 [id number] 844501 238107 213171 5 [place] 2 J Vascular wire (7231549J) INFLATOR Merit 1 QU0583 583067 856568 593094 15 Merit Medical BasixCompak (WK5967) GUIDE 6FR Cardinal 1 [id number] 853153 098402 171459 10 XBLAD 3.5 Health catheter (88708984) KAITLIN OTW 3.5 Medtronic 1 [id number] 658296 7765297 343581 5 [id number] x 12 stent ([id number]) TR BAND Terumo 1 [id number] 851669 167948 718953 40 Standard ([id number]) Signature Audit [place] Stage Time Signature Unsigned Intra-Procedure 08/14/2018 Aaron Arrington 9:07:34 AM RT(R) Signatures Monitor : Aaron Arrington RT Signature : Date : Time : [id number] [place] [address]
[2018-08-14] MEDS ORDERED: ULTRAM50 MG PO (06:47)
[2018-08-14] MEDS ORDERED: LOPRESSOR25 MG PO (06:47)
[2018-08-14 06:57] VITALS: BP 137/79; Ht 182.9 cm; Wt 86.4 kg
[2018-08-14 07:13] LABS: BASOPHILS 0.1 % (0-2); EOSINOPHILS 0.5 % (0-7); HEMATOCRIT 44.7 % (42.0-54.0); HEMOGLOBIN 15.1 g/dL (13.5-17.5); IMMATURE GRANULOCYTES 0.4 % (0-5); LYMPHOCYTES 18.1 % (15-50); MCH 28.7 pg (26.0-34.0); MCHC 33.8 g/dL (31.0-37.0); MEAN PLATELET VOLUME 11.1 fL (7.4-10.4); MONOCYTES 5.7 % (2-11); NEUTROPHILS 75.2 % (40-80); PLATELET COUNT 162 10x3/uL (130-400); RBC 5.26 10x6/uL (4.20-6.10); RDW 14.8 % (11.5-14.5); WBC 7.9 10x3/uL (4.8-10.8)
[2018-08-14 07:42] LABS: CHOL - HDL RATIO 6.8 ratio (2.3-4.9); LDL-HDL RATIO 4.5 ratio (1.5-3.5)
[2018-08-14 08:12] LABS: ANION GAP 18.4 mmol/L (8-16); CALCIUM 8.8 mg/dL (8.5-10.1); CARBON DIOXIDE 23.4 mmol/L (21.0-32.0); CREATININE - SERUM 1.4 mg/dL (0.6-1.3); POTASSIUM - SERUM 3.8 mmol/L (3.5-5.1)
[2018-08-14] MEDS ORDERED: EFFIENT10 MG PO (09:23)
--- NOTE | 2018-08-14 09:35 | NUR ---
ROOM AIR, NO RESP DISTRESS. RIGHT WRIST TR BAND CDI, NO BLEEDING OR HEMATOMA NOTED. NO C/O PAIN OR NAUSEA. VSS. FAMILY AT BEDSIDE, CALL LIGHT WITHIN REACH.
--- NOTE | 2018-08-14 10:05 | NUR ---
RESTING QUIETLY WITH EYES CLOSED. RIGHT WRIST TR BAND CDI, NO BLEEDIN OR HEMATOMA NOTED. DENIES ANY NEEDS AT THIS TIME. VSS. WILL CONTINUE TO MONITOR.
--- NOTE | 2018-08-14 10:20 | NUR ---
CONTINUES TO REST COMFORTABLY WITH NO C/O. RIGHT WRIST TR BAND CDI, NO BLEEDING OR HEMATOMA NOTED. DENIES ANY NEEDS. VSS. CALL LIGHT WITHIN REACH.
--- NOTE | 2018-08-14 10:50 | NUR ---
ROOM AIR WITH NO RESP DISTRESS. RIGHT WRIST TR BAND CDI, NO BLEEDING OR HEMATOMA NOTED. VSS. WILL CONTINUE TO MONITOR CLOSELY.
--- NOTE | 2018-08-14 11:47 | NUR ---
RESTING COMFORTABLY WITH NO C/O. RIGHT WRIST TR BAND CDI, NO BLEEDING OR HEMATOMA NOTED. DENIES ANY NEEDS. VSS. WILL CONTINUE TO MONITOR.
--- NOTE | 2018-08-14 12:10 | NUR ---
3CC OF AIR REMOVED FROM TR BAND, BLEEDIING NOTED. 5CC OF AIR PLACED BACK INTO BAND TO STOP BLEEDING. SIPPING ON DRINK WITH NO C/O NAUSEA. VSS. WILL CONTINUE TO MONITOR.
--- NOTE | 2018-08-14 12:22 | NUR ---
3CC OF AIR REMOVED FROM TR BAND WITH NO BLEEDING NOTED. VSS. WILL CONTINUE TO MONITOR.
--- NOTE | 2018-08-14 12:35 | NUR ---
3CC OF AIR REMOVED FROM TR BAND WITH NO BLEEDING NOTED. LEFT PIV D/C'D WITH CATHETER INTACT, BAND AID TO SITE. UP TO BEDSIDE TO GET DRESSED.
--- NOTE | 2018-08-14 12:42 | NUR ---
REMAINING AIR REMOVED FROM TR BAND WITH NO BLEEDING NOTED. DRESSING PLACED TO SITE. DISCHARGE INSTRUCTIONS ALONG WITH EFFIENT PRESCRIPTION GIVEN TO PATIENT AND , BOTH VERBALIZED UNDERSTANDING. AMBULATED TO RESTROOM.
--- NOTE | 2018-08-14 12:58 | NUR ---
TAKEN OUT VIA WHEELCHAIR BY CATH PRACTICAL NURSE CLINICAL COORDINATOR. LEFT FACILITY WITH FAMILY AND ALL PERSONAL BELONGINGS.
== END 2018-08-14 12:58 | disposition home or self-care (01) ==
LOC: D.CATH 06:29
PROVIDERS: ATTEND Internal Medicine Cardiovascular Disease
DX: I25.119 Atherosclerotic heart disease of native coronary artery with unspecified angina pectoris (principal); Z01.812 Encounter for preprocedural laboratory examination

== ENCOUNTER → 2019-03-27 13:08 | Outpatient (CLI) | payer BC ==
[2018-08-14 06:57] VITALS: BMI 25.8
[~2019-03-27 13:08] MED LIST changes: +EFFIENT10 MG PO; +LOPRESSOR25 MG PO; +ULTRAM50 MG PO
== END | disposition home or self-care (01) ==
LOC: D.HCCECHO 13:08
PROVIDERS: ATTEND Internal Medicine Cardiovascular Disease
DX: I25.10 Atherosclerotic heart disease of native coronary artery without angina pectoris (principal)

== ENCOUNTER → 2019-04-28 08:59 | Outpatient (CLI) | payer BC ==
[2018-08-14 06:57] VITALS: BMI 25.8
== END | disposition home or self-care (01) ==
LOC: D.HCCARDIO 08:59
PROVIDERS: ATTEND Internal Medicine Cardiovascular Disease
DX: I25.10 Atherosclerotic heart disease of native coronary artery without angina pectoris (principal)

== ENCOUNTER 2019-05-14 11:57 | Outpatient (CLI) | payer BC ==
[~2019-05-14] VITALS: Ht 182.9 cm; Wt 84.1 kg
--- NOTE | ~2019-05-14 | HEMODYNAMI ---
PATIENT:NATALI RAPHAEL MEDICAL RECORD: [id number] : 63 LOCATION:[facility] ADMISSION DATE: 05/14/19 Generatedon:05/14/201915:26 Patient name: NATALI RAPHAEL Patient #: [id number] SSN: [id number] : 1965 Date of study: 05/14/2019 Page: Of Hemodynamic Procedure Report Patient Data Patient Demographics Procedure consent was obtained First Name: NATALI Gender: Male Last Name: IJEOMA : 1965 Middle Initial: TAMIKA Age: 53 year(s) Patient #: [id number] Race: SSN: [id number] Additional ID: [id number] Contact details Address: [address] [place] [address] State: [place] City: [facility] Zip code: [address] Past Medical History Allergies Allergen Reaction Date Comments Reported Other allergy 07/10/2018 Klonopin, Soma, Pravastatin Other allergy 08/14/2018 Klonopin, Pravastatin, Soma Other allergy 05/14/2019 KLONOPIN, PRVASTATIN, SOMA Admission Admission Data Admission Date: 05/14/2019 Admission Time: 11:57 Arrival Date: 05/14/2019 Arrival Time: 0:00 Admit Source: Other Insurance Payor: Private health insurance [facility] #: [id number] Height (in.): 72 BSA: 2.06 (m2) Height (cm.): 182.88 BMI: 25.14 (kg/m2) Weight (lbs.): 185.39 Weight (kg.): 84.09 Lab Results Lab Result Date: 05/14/2019 Lab Result Time: 0:00 Biochemistry Name Units Result Min Max BUN mg/dl 25 --(----)-* 7 18 Creatinine mg/dl 1.3 --(---*)-- 0.6 1.3 eGFR ml/min 61.40901 *-(----)-- 90 120 NONAFRICAN CBC Name Units Result Min Max Hematocrit % 44.8 --(*---)-- 42 54 Hemoglobin g/dl 15.3 --(-*--)-- 13.5 17.5 Procedure Procedure Types Cath Procedure Diagnostic Procedure [facility] w/Coronaries Sedation Charges Moderate Sedation up to 30 minutes Procedure Description Procedure Date Procedure Date: 05/14/2019 Procedure Start Time: 15:01 Procedure End Time: 15:23 Procedure Staff Name Function Cassius Butt MD Performing Physician Gualbetro Cisneros RN Nurse Peyton Arcos RT Monitor Lluvia Castro RT Scrub Indication Coronary risk factors Aortic valve disease Aortic insufficiency Procedure Data Cath Procedure Fluoroscopy Diagnostic fluoroscopy Total fluoroscopy Time: 7.2 time: 7.2 min min Diagnostic fluoroscopy Total fluoroscopy dose: 716 dose: 716 mGy mGy Contrast Material Contrast Material Type Amount (ml) Isovue 300 97 Entry Location Entry Primary Successful Side Size Upsize Upsize Entry Closure Quinteros ccessful Closure Location (Fr) 1 (Fr) 2 (Fr) Remarks Device Remarks Radial Right 6 Fr Mechanical artery Short Compression Estimated blood loss: 5 ml Diagnostic catheters Device Type Used For End Catheter Placement DIAGNOSTIC Joel 110cm Multi-vessel 5Fr catheter ([id number]) Angiography DIAGNOSTIC Kimber 5Fr Left Coronary catheter (045107) Angiography DIAGNOSTIC [place] 110cm 5 Left Coronary Fr catheter (740152) Angiography DIAGNOSTIC Pigtail 5Fr LV Angiography catheter ([id number]) Procedure Complications No complications Procedure Medications Medication Administration Route Dosage Oxygen etCO2 Nasal cannula 2 l/min Lidocaine 2% added to field 20 Heparin Flush Bag added to field 2 bags (1000units/500ml NS) 0.9% NaCl I.V. 100 ml/hr Versed I.V. 2 mg Fentanyl I.V. 50 mcg Versed I.V. 2 mg Fentanyl I.V. 50 mcg Radial Cocktail I.A. 1 syringe (Verapamil 2mg/Nitro 400mcg/Heparin 1500units) Hemodynamics Rest BSA: 2.06 (m2) HGB: 15.3 (g/dl) O2 Consumption: Estimated: 245.31 (ml/min) O2 Co nsumption indexed: Estimated:119.08 (ml/min/m) Heart Rate: 71 (bpm) Pressure Samples Time Site Value (mmHg) Purpose Heart Use Rate(bpm) 15:05 LV 125/-1,11 Snapshot 88 15:06 AO 100/56(76) Pullback 94 15:06 LV 114/-6,1 Pullback 94 Gradients Valve Time Site 1 Site 2 Mean SEP/DFP Peak To Heart Use (mmHg) (sec/min) Peak Rate (mmHg) (bpm) Aortic 15:06 LV AO 18 11 14 94 114/-6,1 100/56(76) Calculations Valve P-P Mean Valve Index Valve Source Name Gradient Area Flow (cm2) Aortic 14 18 14 18 Snapshots Pre Cath Intra NCS Post Cath Vital Signs Time Heart Resp SPO2 etCO2 NIBP (mmHg) Rhythm Pain Sedation Rate (ipm) (%) (mmHg) Status Level (bpm) 14:44:47 76 14 99 37.1 134/79(112) NSR 0 (11) 10(A) , No pain 14:49:01 73 12 97 39.3 126/77(93) NSR 0 (11) 10(A) , No pain 14:53:17 74 14 93 41.6 113/66(105) NSR 0 (11) 10(A) , No pain 14:57:25 73 14 95 43.2 118/76(92) NSR 0 (11) 10(A) , No pain 15:01:35 75 14 94 41.6 126/72(96) NSR 0 (11) 10(A) , No pain 15:05:51 102 12 96 35.6 118/66(73) NSR 0 (11) 9(A) , No pain 15:10:01 85 11 94 37.9 119/66(81) NSR 0 (11) 9(A) , No pain 15:14:12 80 11 95 40.1 108/67(86) NSR 0 (11) 10(A) , No pain 15:18:20 80 12 95 41.6 119/71(88) NSR 0 (11) 10(A) , No pain 15:22:32 76 12 97 40.9 118/68(89) NSR 0 (11) 10(A) , No pain Medications Time Medication Route Dose Verified Delivered Reason Notes Effectiveness by by 14:49:27 Oxygen etCO2 2 l/min Cassius Buffie used for Nasal Daquan Cisneros contour grinder cannula 14:49:35 Lidocaine 2% added 20ml Cassius Cassius for local to vial Daquan Butt MD anesthetic field 14:49:43 Heparin Flush added 2 bags Cassius Cassius used for Bag to Daquan Butt MD procedure (1000units/500ml field NS) 14:49:52 0.9% NaCl I.V. 100 Cassius Buffie Per ml/hr Daquan Cisneros RN physician 14:59:57 Versed I.V. 2 mg Cassius Buffie for sedation Daquan Cisneros RN 15:00:02 Fentanyl I.V. 50 mcg Cassius Buffie for sedation Daquan Cisneros RN 15:05:26 Radial Cocktail I.A. 1 Cassius Cassius for (Verapamil syringe Daquan Butt MD vasodilation 2mg/Nitro 400mcg/Heparin 1500units) 15:11:49 Versed I.V. 2 mg Cassius Buffie for sedation Daquan Cisneros RN 15:11:53 Fentanyl I.V. 50 mcg Cassius Buffie for sedation Daquan Cisneros RN Procedure Log Time Note 14:16:51 Informed consent obtained and on chart 14:17:01 Arrival Date: 05/14/2019 12:00:00 AM 14:17:21 Insurance Payor : Private health insurance 14:17:22 Admit Source: Other 14:17:31 Patient Height : 72 inches 14:17:36 Patient Weight : 185.39 lbs 14:18:20 Lab Result : Hematocrit 44.8 % 14:18:20 Lab Result : eGFR NONAFRICAN 61.92641 ml/min 14:18:20 Lab Result : Hemoglobin 15.3 g/dl 14:18:20 Lab Result : BUN 25 mg/dl 14:18:20 Lab Result : Creatinine 1.3 mg/dl 14:18:30 Diagnostic Cath Status : Elective 14:19:25 Indication : Coronary risk factors 14:19:37 Indication : Aortic valve disease 14:19:51 Indication : Aortic insufficiency 14:20:07 Procedure Status Elective Heart Cath (OP). 14:20:17 Plan of Care:Hemodynamics will remain stable., Cardiac rhythm will remain stable., Comfort level will be maintained., Respiratory function will remain adequate., Patient/ family verbilizes understanding of procedure., Procedure tolerated without complication., Recovers from procedure without complications.. 14:20:37 Time tracking: Regular hours (M-F 7:00 - 5:00) 14:22:04 Risk of Mortality: 0.1 14:22:07 Risk of blood transfusion: 0.1 14:22:09 Risk of LENCHO: 0.5 14:22:46 Stress Test: yes; abnormal ANTERIOR AND APICAL 14:24:01 Lab results completed and on chart. 14:24:19 H&P Date Dictated: 05/14/2019 Within 30 days and on chart.. 14:25:14 Patient allergic to Other allergyKLONOPIN, PRVASTATIN, SOMA 14:29:11 Gualberto Cisneros RN sent for patient. Start room use. 14:36:06 Patient received from Pre/Post Procedure Room to CCL 1 Alert and oriented. Tansferred to table in Supine position. 14:36:07 Warm blankets applied, and jesús hugger turned on for patient comfort. 14:36:08 Correct patient and procedure confirmed by team. 14:36:08 ECG and BP/O2 sat monitors applied to patient. 14:36:11 Pre-procedure instructions explained to patient. 14:36:12 Pre-op teaching completed and patient verbalized understanding. 14:36:13 Family in waiting room. 14:36:17 Patient NPO since Midnight. 14:36:25 Is the patient allergic to Iodine/contrast media? No. 14:40:56 Was the patient premedicated? Yes 14:40:58 Is patient on blood thinner?No 14:41:06 Pre procedure: right dorsailis pedis pulse 2+ Normal; easily identifiable; not easily obliterated 14:41:10 Patient pain scale 0/10 ?. 14:41:45 IV patent on arrival in left antecubital with 0.9% NaCl at O. 14:42:34 Snore? Yes 14:42:38 Previous problem with sedation/anesthesia? No ? 14:42:40 Sleep apnea? No 14:42:42 Deviated septum? No 14:42:43 Opens mouth fully? Yes 14:42:44 Sticks out tongue? Yes 14:42:47 Airway obstruction? No ? 14:42:49 Dentures? No ? 14:43:00 Patient diabetic? No. 14:43:03 If diabetic: On Metformin? N/A 14:43:14 Right Radial & Right Groin area was prepped with chlora-prep and draped in sterile fashion 14:43:15 Alarms reviewed by RHector NHector 14:43:16 Sharps counted by scrub and verified by R.N. 14:43:24 Modified Toño's test Ulnar < 7 seconds 14:43:38 Vital chart was started 14:43:42 Full Disclosure recording started 14:44:55 Baseline sample Acquired. 14:44:58 Rhythm: sinus rhythm 14:45:06 Use device set Radial Dx or PCI 14:45:07 ACIST Syringe (99405) opened to sterile field. 14:45:08 Medline Cath Pack ([id number]) opened to sterile field. 14:45:09 Bag Decanter (2002S) opened to sterile field. 14:45:09 ACIST Hand Control (54859) opened to sterile field. 14:45:10 ACIST Manifold (64485) opened to sterile field. 14:45:13 MBrace Wrist Support ([id number]) opened to sterile field. 14:45:14 NEEDLE Cook 21G 4cm Radial (E21018) opened to sterile field. 14:45:17 EMERALD Guide Wire (142-277) opened to sterile field. 14:45:18 SHEATH 6FR RAIN (9874392) opened to sterile field. 14:49:27 Oxygen 2 l/min etCO2 Nasal cannula was administered by Gualberto Cisneros RN; used for procedure; Verbal order read back and verified. 14:49:35 Lidocaine 2% 20ml vial added to field was administered by Cassius Butt MD; for local anesthetic; Verbal order read back and verified. 14:49:43 Heparin Flush Bag (1000units/500ml NS) 2 bags added to field was administered by Cassius Butt MD; used for procedure; Verbal order read back and verified. 14:49:52 0.9% NaCl 100 ml/hr I.V. was administered by Gualberto Cisneros RN; Per physician; Verbal order read back and verified. 14:53:40 Zero performed for pressure channel P1 14:59:35 Physician arrived 14:59:35 --------ALL STOP TIME OUT------ 14:59:36 Final Timeout: patient, procedure, and site verified with staff and physician. All members of the team are in agreement. 14:59:46 Right Radial & Right Groin site verified by team. 14:59:50 Fire Safety Assessment: A--An alcohol-based skin anteseptic being used preoperatively., C--Open oxygen or nitrous oxide is being used., D--An ESU, laser, or fiber-optic light is being used. 14:59:54 Physical assessment completed. ASA score P 2 - A patient with mild systemic disease as per Cassius Butt MD. 14:59:57 Versed 2 mg I.V. was administered by Gualberto Cisneros RN; for sedation; Verbal order read back and verified. 15:00:02 Fentanyl 50 mcg I.V. was administered by Gualberto Cisneros RN; for sedation; Verbal order read back and verified. 15:00:05 2) 60-89 Mildly reduced kidney function, and other findings (as for stage 1) point to kidney disease. 15:01:17 Maximum allowable contrast dose (3.7 X eGFR X 0.75)169 ml. 15:01:21 Sedation plan: IV Moderate Sedation Medication:Versed, Fentanyl 15:01:26 Procedure started. 15:01:31 Local anesthetic to right radial artery with Lidocaine 2% by Cassius Butt MD.INITIAL ACCESS ONLY 15:03:01 A 6 Fr Short sheath was inserted into the Right Radial artery 15:03:12 A DIAGNOSTIC [place] 110cm 5Fr catheter ([id number]) was advanced over the wire and used for Multi-vessel Angiography. 15:04:53 Zero performed for pressure channel P1 15:05:26 Radial Cocktail (Verapamil 2mg/Nitro 400mcg/Heparin 1500units) 1 syringe I.A. was administered by Cassius Butt MD; for vasodilation; Verbal order read back and verified. 15:05:50 LV hemodynamics recorded. 15:05:51 LV gram done using BROWNE 15:05:53 Injector settings: Ml/sec: 5, Volume: 15, 15:05:59 EF : 50 % 15:07:30 RCA angiography performed. 15:07:32 Injector settings: Ml/sec: 3, Volume: 6, 15:08:44 Catheter removed. 15:08:47 A DIAGNOSTIC Nanoflex 5Fr catheter (115902) was advanced over the wire and used for Left Coronary Angiography. 15:10:47 Catheter removed. unable to cannulate vessel. 15:11:49 Versed 2 mg I.V. was administered by Gualberto Cisneros RN; for sedation; Verbal order read back and verified. 15:11:53 Fentanyl 50 mcg I.V. was administered by Gualberto Cisneros RN; for sedation; Verbal order read back and verified. 15:12:00 A DIAGNOSTIC [place] 110cm 5 Fr catheter (531351) was advanced over the wire and used for Left Coronary Angiography. 15:13:35 Catheter removed. unable to cannulate vessel. 15:14:41 GUIDE 5FR EBU 3.5 catheter ([id number]) opened to sterile field. 15:15:56 LCA angiography performed. 15:16:00 Injector settings: Ml/sec: 3, Volume: 6, 15:17:08 Catheter removed. 15:18:01 A DIAGNOSTIC Pigtail 5Fr catheter (150883F) was advanced over the wire and used for LV Angiography. 15:19:06 Aortic Root visualized 15:19:49 Injector settings: Ml/sec: 10, Volume: 30, 15:20:01 Catheter removed. 15:20:47 ZEPHYR REGULAR TR BAND (904242) opened to sterile field. 15:21:07 ACCDominant side:Right 15:21:20 Sheath removed intact; hemostasis achieved with Mechanical Compression to the Right Radial artery. 15:21:21 Procedure ended.(Physican Out) 15:21:55 Fluoroscopy time 07.20 minutes. 15:21:59 Fluoroscopy dose: 716 mGy 15:21:59 Flurop Dose total: 716 15:22:05 Dose Area Product 50184 mGy/cm. 15:22:09 Contrast amount:Isovue 300 97ml. 15:22:12 Maximum allowable dose exceeded? No. 15:22:15 Sharps counted by scrub and verified by R.N. 15:22:18 [place] band inflated with 10cc of air. 15:22:20 Insertion/operative site no bleeding no hematoma. 15:22:21 Post Procedure Pulses reassessed and unchanged 15:22:27 Post procedure rhythm: unchanged. 15:22:35 Estimated blood loss: 5 ml 15:22:42 Post procedure instruction explained to patient.Patient verbalizes understanding. 15:22:42 Patient needs reinforcement of post procedure teaching. 15:23:08 Procedure type changed to Cath procedure, Diagnostic procedure, LHC, LHC w/Coronaries, Sedation Charges, Moderate Sedation up to 30 minutes 15:23:08 Procedure and supply charges have been captured, reviewed, submitted and are correct. 15:23:13 Procedure Complication : No complications 15:23:20 Vital chart was stopped 15:23:23 [facility] Findings: mild to moderate CAD (<70%) 15:23:25 Operative report dictated upon procedure completion. 15:23:25 See physician's report for complete and final results. 15:23:32 Report given to Pre/Post Procedure Room. 15:23:35 Patient transfered to Pre/Post Procedure Room with Stretcher. 15:23:37 Procedure ended. 15:23:37 Full Disclosure recording stopped 15:23:43 End room use (Document Last) Device Usage Item Name Manufacture Quantity Catalog Hospital Part Current Minima l Lot# / Number Charge Number Stock Stock Serial# Code ACIST Acist 1 26265 [id number] 668989 899233 20 Syringe Medical (95077) Systems Inc Medline Medline 1 [id number] 817444 35294 060377 5 Cath Pack ([id number]) Bag Microtek 1 513842 96705 390113 5 Decanter Medical Inc. () ACIST Hand Acist 1 79401 985195 932666 557729 5 Control Medical (76128) Systems Inc ACIST Acist 1 65588 724948 002579 825716 5 Manifold Medical (65920) Systems Inc MBrace Advanced 1 140-0250-00 747983 86328 140932 5 Wrist Vascular Support Dynamics (675370435) NEEDLE ReShape Medical Medical 1 D97454 761770 016640 762745 5 21G 4cm Radial (E75541) EMERALD Cardinal 1 502-455 318595 838117 336206 5 Guide Wire Health (502-455) SHEATH 6FR Cardinal 1 0904728 767993 8629797 187090 5 [facility] (3406138) DIAGNOSTIC Terumo 1 40-5023 570867 619476 512100 5 Joel 110cm 5Fr catheter (016372) DIAGNOSTIC Terumo 1 40-5022 883328 176874 559871 5 Kimber 5Fr catheter (279747) DIAGNOSTIC Terumo 1 40-5013 612737 530889 436214 5 [place] 110cm 5 Fr catheter (273696) GUIDE 5FR Medtronic 1 [id number] 812876 625341 622584 1 EBU 3.5 catheter (BS6QUU87) DIAGNOSTIC Cardinal 1 [id number] 709702 411624 819284 5 Pigtail 5Fr Health catheter (522112R) ZEPHYR Cardinal 1 591291 661190 3668128 553746 5 REGULAR TR Health BAND (663713) Signature Audit [place] Stage Time Signature Unsigned Intra-Procedure 05/14/2019 Peyton Arcos 3:24:54 PM RT(R) Intra-Procedure 05/14/2019 Gualberto Cisneros RN 3:25:41 PM Intra-Procedure 05/14/2019 Cassius Butt MD 3:26:38 PM [facility] [address] [place] [address]
[2019-05-14] MEDS ORDERED: ZOCOR20 MG PO (12:42)
[2019-05-14] MEDS ORDERED: NEXIUM40 MG PO (12:42)
[2019-05-14 12:51] VITALS: BP 145/81; Ht 182.9 cm; Wt 84.1 kg
[2019-05-14 13:02] LABS: BASOPHILS 0.2 % (0-2); HEMATOCRIT 44.8 % (42.0-54.0); HEMOGLOBIN 15.3 g/dL (13.5-17.5); IMMATURE GRANULOCYTES 0.4 % (0-5); LYMPHOCYTES 24.2 % (15-50); MCH 30.5 pg (26.0-34.0); MCHC 34.2 g/dL (31.0-37.0); MCV 89.2 fL (80.0-100.0); MEAN PLATELET VOLUME 10.7 fL (7.4-10.4); MONOCYTES 6.9 % (2-11); NEUTROPHILS 65.3 % (40-80); PLATELET COUNT 168 10x3/uL (130-400); RBC 5.02 10x6/uL (4.20-6.10); RDW 13.7 % (11.5-14.5); WBC 4.9 10x3/uL (4.8-10.8)
[2019-05-14 13:16] LABS: ANION GAP 11.3 mmol/L (8-16); CALCIUM 9.2 mg/dL (8.5-10.1); CARBON DIOXIDE 26.8 mmol/L (21.0-32.0); CHOL - HDL RATIO 4.4 ratio (2.3-4.9); CREATININE - SERUM 1.3 mg/dL (0.6-1.3); LDL-HDL RATIO 2.4 ratio (1.5-3.5); POTASSIUM - SERUM 4.1 mmol/L (3.5-5.1)
--- NOTE | 2019-05-14 15:35 | NUR ---
PATIENT ARRIVED TO ROOM 3, PLACED ON CM. VSS ON 2L NC. RIGHT Z BAND WITH WRIST IMMOBILIZER IN PLACE, NO S/S OF BLEEDING OR HEMATOMA.
--- NOTE | 2019-05-14 15:50 | NUR ---
PATIENT AWAKE, SITTING UP IN BED EATING SANDWICH AND DRINKING SODA. VSS ON 1L NC. NO C/O PAIN, NUMBNESS, OR TINGLING. NO N/V. VSS ON 1L NC. PHYSICIAN PREVIOUSLY AT BEDSIDE TO UPDATE PATIENT AND FAMILY.
--- NOTE | 2019-05-14 16:20 | NUR ---
RIGHT Z BAND IN PLACE, NO S/S OF BLEEDING OR HEMATOMA. NO C/O PAIN, NUMBNESS, OR TINGLING. VSS ON ROOM AIR. FAMILY PRESENT AT BEDSIDE.
--- NOTE | 2019-05-14 16:30 | NUR ---
3CC OF AIR REMOVED PER PROTOCOL, NO S/S OF BLEEDING OR HEMATOMA. VSS ON ROOM AIR. NO C/O PAIN, NUMBNESS, OR TINGLING.
--- NOTE | 2019-05-14 17:00 | NUR ---
REMAINING AIR REMOVED FROM Z BAND, NO S/S OF BLEEDING OR HEMATOMA. DRESSING APPLIED AT RIGHT RADIAL SITE. VSS ON ROOM AIR. NO C/O PAIN, NUMBNESS, OR TINGLING. PATIENT VOIDED WITHOUT DIFFICULTY.
--- NOTE | 2019-05-14 17:20 | NUR ---
IV REMOVED. RIGHT RADIAL SITE IS CDI, NO S/S OF BLEEDING OR HEMATOMA. WRITTEN AND VERBAL DISCHARGE INSTRUCTIONS GIVEN TO PATIENT AND SPOUSE, BOTH VOICE UNDERSTANDING. VSS ON ROOM AIR.
--- NOTE | 2019-05-14 17:30 | NUR ---
PATIENT TRANSPORTED VIA WHEELCHAIR TO CAR WITH SPOUSE DRIVING, ALL BELONGINGS WITH PATIENT.
== END 2019-05-14 17:30 ==
LOC: D.CATH 11:57
PROVIDERS: ATTEND Internal Medicine Cardiovascular Disease
DX: R94.30 Abnormal result of cardiovascular function study, unspecified (principal); I25.119 Atherosclerotic heart disease of native coronary artery with unspecified angina pectoris; I35.1 Nonrheumatic aortic (valve) insufficiency; R06.02 Shortness of breath; I10 Essential (primary) hypertension; R06.00 Dyspnea, unspecified; E11.9 Type 2 diabetes mellitus without complications

== ENCOUNTER 2019-05-29 13:12 | Inpatient (IN) | payer BC ==
[~2019-05-29] VITALS: Ht 182.9 cm; Wt 86.5 kg
[~2019-05-29 13:12] MED LIST changes: +NEXIUM40 MG PO; +ZOCOR20 MG PO
[2019-05-29 15:15] LABS: BASOPHILS 0.2 % (0-2); EOSINOPHILS 2.2 % (0-7); HEMOGLOBIN 15.7 g/dL (13.5-17.5); IMMATURE GRANULOCYTES 0.4 % (0-5); LYMPHOCYTES 20.7 % (15-50); MCH 30.8 pg (26.0-34.0); MCHC 34.9 g/dL (31.0-37.0); MCV 88.4 fL (80.0-100.0); MEAN PLATELET VOLUME 10.4 fL (7.4-10.4); MONOCYTES 5.9 % (2-11); NEUTROPHILS 70.6 % (40-80); PLATELET COUNT 171 10x3/uL (130-400); RBC 5.09 10x6/uL (4.20-6.10); RDW 14.2 % (11.5-14.5); WBC 5.1 10x3/uL (4.8-10.8)
[2019-05-29 15:16] LABS: APPEARANCE CLEAR (CLEAR); BILIRUBIN NEGATIVE (NEGATIVE); COLOR YELLOW (YELLOW); GLUCOSE NEGATIVE (NEGATIVE); KETONE NEGATIVE (NEGATIVE); NITRITE NEGATIVE (NEGATIVE); PROTEIN NEGATIVE (NEGATIVE); UROBILINOGEN NORMAL (NORMAL)
[2019-05-29 15:34] LABS: APTT 41.4 SECONDS (22.8-39.4); INR 1.13 (0.85-1.17)
[2019-05-29 16:10] LABS: ALBUMIN 4.4 g/dL (3.4-5.0); ANION GAP 15.5 mmol/L (8-16); BILIRUBIN - TOTAL 1.17 mg/dL (0.2-1.3); CALCIUM 9.2 mg/dL (8.5-10.1); CARBON DIOXIDE 28.8 mmol/L (21.0-32.0); CREATININE - SERUM 1.2 mg/dL (0.6-1.3); PHOSPHOROUS 4.8 mg/dL (2.5-4.9); POTASSIUM - SERUM 4.3 mmol/L (3.5-5.1); T4 THYROXIN - FREE 0.96 ng/dL (0.76-1.46); THYROID STIMULATING HORMONE 3.26 uIU/mL (0.36-3.74); URIC ACID 6.5 mg/dL (2.6-7.2)
[2019-06-02 19:15] VITALS: BP 127/67
[2019-06-03] VITALS (47 sets, daily range): BP systolic 96–151; BP diastolic 54–91; BMI 25.4
--- NOTE | 2019-06-03 11:53 | NUR ---
PT ARRIVED IN THE UNIT. PT HOOKED TO ICU MONITORS. NSR WITH OCCASIONAL PVC'S NOTED. 8.0 ETT NOTED 25 AT THE LIP. RIGHT IJ SWAN CARLOS ABOUT 47 CM. SEE IV FLOW SHEET FOR GTTS. PLASMALYTE WITH 2 GRAMS OF MG INFUSING AT 100/H. RIGHT RADIAL WILLIAN NOTED WITH THE WRIST PROTECTOR ON. CAP REFILL <3 SECONDS. IV NOTED TO LEFT FA SL. MIDSTERNAL DRESSING C/D/I. SUBSTERNAL DRESSING C/D/I WITH CT X2 LABLED A AND P NOTED TO 20 OF SUCTION WITH BLOODY DRAINAGE. NO AIR LEAK. FC NOT3ED WITH CLEAR, YELLOW URINE. ORANGE CAPS NOTED TO ALL IV PORTS. CALL LIGHT IN REACH. WILL CONT POC.
--- NOTE | 2019-06-03 12:25 | NUR ---
ABG RESULTS RECEIVED. GIVE 20MEQ OF K OVER [address] PRICE. PT AWAKE AND FOLLOWING COMMANDS. CHANGE VENT TO SPONT PER DR PRICE. PT TOLERATING WELL. WILL CONT POC.
--- NOTE | 2019-06-03 13:30 | NUR ---
BP 95/54 (68), HEART RATE 90 NSR WITH OCCASIONAL PVC'S, CI 2.8 PA / CVP 5. DR PRICE NOTIFIED. GIVE 250ML/H BOLUS AND START ANIL IF NEEDED.
--- NOTE | 2019-06-03 14:12 | NUR ---
ABG RESULTS RECEIVED. NIF AND TIDAL VOL PER RT. PT AWAKE AND FOLLOWING COMMANDS. DR PRICE CALLED AND OK TO EXTUBATE AND PULL SWAN.
--- NOTE | 2019-06-03 14:13 | NUR ---
PT EXTUABTED AND PLACED ON 4L VIA NC. PT TOLERATED WELL. WILL CONT POC.
[2019-06-03 15:27] LABS: MAGNESIUM - SERUM 2.3 mg/dL (1.8-2.4); POTASSIUM - SERUM 5.3 mmol/L (3.5-5.1)
--- NOTE | 2019-06-03 15:33 | NUR ---
MICHELLE PULLED PER DR PRICE ORDERS. PT TOLERATED WELL. NO ECTOPY NOTED. WILL CONT POC.
--- NOTE | 2019-06-03 15:41 | NUR ---
DR PRICE NOTIFIED OF MG AND K LEVELS. NO NEW ORDERS. WILL CONT POC
--- NOTE | 2019-06-03 16:26 | NUR ---
TAUGHT PT TO SPLINT CHEST WITH HEART PILLOW. PT HAD A PRODUCTIVE COUGH BUT PT SWALLOWED SPUTUM. PT INSTRUCTED TO USE IS 10X'S/H WITH THE FAMILY AT HIS BEDSIDE. PT PULLED 500-750 AND 1000 ONCE. PT VSS. WILL CONT POC.
--- NOTE | 2019-06-03 16:57 | NUR ---
PT TOLERATED ICE CHIPS AND THEN ADVANCED TO PO FLUIDS. PT TOLERATED WELL. PRN PERCOCET GIVEN. WILL CONT POC. FAMILY AT THE BEDSIDE.
--- NOTE | 2019-06-03 18:30 | NUR ---
DR PRICE UPDATED. NO NEW ORDERS. CONT POC.
--- NOTE | 2019-06-03 18:47 | NUR ---
ORAL CARE DONE WITH PERIDEX
--- NOTE | 2019-06-03 23:00 | NUR ---
REASSESSMENT COMPLETE PER FLOW SHEET, NO ACUTE CHANGES FROM INITIAL ASSESSMENT, PT RESTING WITH EYES CLOSED, WAKES WITH MINIMAL STEMULI, VSS, NSR ON CM, CT TO 20cm SUCTION, NO AIR LEAK, LARGE CUP ICE WATER GIVEN PER REQUETS, DEINIES OTHER NEEDS AT THIS TIME, BED ALARM ON, CALL LIGHT IN REACH, WILL CONTINUE TO MONITOR
[2019-06-04] VITALS (43 sets, daily range): BP systolic 106–139; BP diastolic 58–86; Ht 182.9 cm; Wt 86.5 kg
--- NOTE | 2019-06-04 00:18 | NUR ---
PT C/O ACHING INCISIONAL DISCOMFORT RATED 6/10 ON NUMERIC PAIN SCALE, PRN PAIN MED GIVEN SEE MAR/ORDERS FOR FURTHER, REPOSITIONED UP IN BED FOR COMFORT BY RNx2, VSS NSR ON CM, CALL LIGHT IN REACH, BED ALARM ON, WILL CONTINUE TO MONITOR
--- NOTE | 2019-06-04 01:15 | NUR ---
PT C/O NAUSEA FEELING, PRN ZOFRAN GIVEN PER MAR/ORDERS, VSS, WILL CONTINUE TO MONITOR
--- NOTE | 2019-06-04 03:00 | NUR ---
REASSESSMENT COMPLETE, NO ACUTE CHANGES FROM PRIOR ASSESSMENT, PT AWAKE AND ALERT DENIES PAIN AT THIS TIME, LARGE CUP ICE WATER GIVEN PER REQUEST, I/S COMPLETED 750-1250ML x10 WITH GOOD EFFORT, VSS, NSR ON CM, AL GERMAN'S C/D/I, LEILANI MERRILL AND SCD'S ON BLE, CALL LIGHT IN REACH, BED ALARM ON, WILL CONTINUE TO MONITOR
--- NOTE | 2019-06-04 04:30 | NUR ---
AT BEDSIDE, UPDATE GIVEN, PT AWAKE AND ALERT, DENIES NEEDS AT THIS TIME, REPOSITIONED FOR COMFORT, VSS, NSR ON CM, WILL CONTINUE TO MONITOR
--- NOTE | 2019-06-04 06:00 | NUR ---
CHG AND COMPLETE BED BATH GIVEN, LINEN AND GOWN CHANGED, PT DANGLED AT BEDSIDE WITH NO S/S OF DISTRESS, VSS, PT ASSISTED BY RNx2 TO BEDSIDE CHAIR, PT TOLLERATED MOVEMENT WELL, REPOSITIONED FOR COMFORT, I/S COMPLETED [id number], TCDB COMPLETED, SMALL CUP ICE WATER GIVEN PER REQUEST, CALL LIGHT IN REACH, FAMILY AT BEDSIDE, NO FURTHER NEEDS AT THIS TIME, WILL CONTINUE TO MONITOR
[2019-06-04 06:10] LABS: HEMOGLOBIN 12.6 g/dL (13.5-17.5); MCH 30.3 pg (26.0-34.0); MCHC 34.1 g/dL (31.0-37.0); MCV 88.9 fL (80.0-100.0); MEAN PLATELET VOLUME 10.2 fL (7.4-10.4); RBC 4.16 10x6/uL (4.20-6.10); RDW 14.7 % (11.5-14.5); WBC 10.7 10x3/uL (4.8-10.8)
[2019-06-04 06:29] LABS: ALBUMIN 3.2 g/dL (3.4-5.0); ANION GAP 13.1 mmol/L (8-16); BILIRUBIN - TOTAL 1.53 mg/dL (0.2-1.3); CALCIUM 7.8 mg/dL (8.5-10.1); CARBON DIOXIDE 27.2 mmol/L (21.0-32.0); CREATININE - SERUM 1.1 mg/dL (0.6-1.3); PROTEIN - SERUM 5.8 g/dL (6.4-8.2)
[2019-06-04 06:31] LABS: POTASSIUM - SERUM 4.3 mmol/L (3.5-5.1)
--- NOTE | 2019-06-04 09:00 | NUR ---
0700 ASSESSMENT DONE SEE FLOW SHEET VSS 0900 MED GIVEN PER MAR NO SIGNS OF ACUTE DISTRESS NOTED.
--- NOTE | 2019-06-04 10:00 | NUR ---
DR PRICE AT BEDSIDE ORDERS RECEIVED. LOIS NIXON. WILLIAN NIXON CATHETER TIP INTACT. FLUIDS CUT DOWN. VSS NO SIGNS OF ACUTE DISTRESS NOTED WILL CONTINUE TO MONITOR.
--- NOTE | 2019-06-04 10:40 | OP ---
PATIENT NAME: NATALI RAPHAEL MEDICAL RECORD: [id number] :63 LOCATION:D.I D.CV02 ADMISSION DATE:06/03/19 SURGEON: BELÉN PRICE MD DATE OF OPERATION: 06/03/2019 SURGEON: Belén Price MD LONG TERM CARE PHLEBOTOMIST: None. PROCEDURE PERFORMED: Aortic valve replacement. PREOPERATIVE DIAGNOSIS: Aortic insufficiency. POSTOPERATIVE DIAGNOSIS: Aortic insufficiency. ANESTHESIA: General endotracheal anesthesia. ESTIMATED BLOOD LOSS: Total cardiopulmonary bypass with Cell Saver retransfusion. COMPLICATIONS: None. SPECIMENS: Aortic valve leaflets. CONDITION: Stable. DISPOSITION: CV-ICU. COMPLICATIONS: None. OPERATIVE FINDINGS: Transesophageal echocardiography revealed severe aortic insufficiency with an 11-mm vena Contracta. The valve sized to 25 mm. No perivalvular leak after replacement. 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 OPERATIVE INDICATION: Aortic insufficiency with worsening exertional dyspnea and dilating left ventricular cavity. DESCRIPTION OF PROCEDURE: This patient was brought to the operating suite. General anesthesia was obtained. Transesophageal echocardiogram findings as above. Median sternotomy incision was made. Subcutaneous tissues divided by electrocautery. The sternum was divided with a saw. Heparin was given. Pericardium was opened. Aorta was cannulated. Dual stage venous cannula was inserted. The patient placed cardiopulmonary bypass. Retrograde cardioplegic cannula was inserted. The aorta was from the pulmonary vein. Aortic crossclamp was placed. Cardioplegia was given retrograde. The LV vent was placed through the right superior pulmonary vein. Direct cardioplegia was given into the right and left coronaries. The valve was inspected and there was noted to be fusion of the right and left coronary cusp. Valve leaflets were removed. There is no significant calcification. The valve was sized to 25 mm and the Dao Inspiris valve was seated with sutures from ventricular to aortic side, valve carefully lowered into place and sutures tied. I inspected the valve; there is no subvalvular obstruction and no leak. Aortotomy was closed. Left ventricular cavity was de-aired, cross clamp was OPERATIVE REPORT [id number] NATALI RAPHAEL removed. The antegrade de-airing was performed with a 14-gauge angiocatheter. The hole was oversewn. Left ventricular vent was removed. The patient was in spontaneous rhythm after 1 defibrillation. He had some atrial tachycardia responded to Cordarone fully rewarmed, weaned from cardiopulmonary bypass and was stable. The patient decannulated. All cannulation sites were oversewn. Protamine was given. Thorough irrigation was undertaken. The drains were placed in the mediastinum and in the right pleural cavity, which had been opened, opening the sternum. Pericardial fat was approximated over the great vessels. Hemostasis was ensured. Sternum closed with wires. Fascia closed. Subcutaneous tissue was closed. Skin was closed. Dermabond was placed. The needle and sponge counts were reported as correct. The patient was taken to ICU in stable condition. TRANSINT:[id number] Voice Confirmation ID: [id number] DOCUMENT ID: [id number] BELÉN PRICE MD at 1040 CC: CHAD CORADO M.D. and CHAD MOODY [id number] DICTATION DATE: 06/03/19 1233 AUTOMATIC CAR WASH ATTENDANT: 06/03/19 1753 ADM IN [facility] [address] [place] [id number]
--- NOTE | 2019-06-04 10:51 | NUR ---
REASSESSMENT DONE SEE FLOW SHEET. VSS. NO SIGNS OF ACUTE DISTRESS NOTED.
--- NOTE | 2019-06-04 13:00 | NUR ---
WATER PROVIDED PER PT REQUEST.
--- NOTE | 2019-06-04 14:00 | NUR ---
DR PRICE NURSE PULLED CT AT BEDSIDE. NO SIGNS OF ACUTE DISTRESS. PREVIOUS CT SITE DRESSED USING STERILE TECHNIQUE.
--- NOTE | 2019-06-04 19:30 | NUR ---
PT AWAKE AND ALERT SITTING IN BEDSIDE CHAIR, DENIES PAIN AT THIS TIME, VSS, NSR ON CM, SMALL CUP ICE AND LARGE CUP ICE WATER GIVEN PER REQUEST, CALL LIGHT IN REACH, AT BEDSIDE, UPDATE GIVEN, NO FURTHER NEEDS AT THIS TIME, WILL CONTINUE TO MONITOR
--- NOTE | 2019-06-04 20:50 | NUR ---
PT ASSISTED OUT OF CHAIR TO BATHROOM PER REQUEST, PT AMBULATES WITH STRONG GAIT MINIMAL ASSIST NEEDED TO WALK TO BATHROOM, PT VOID CLEAR YELLOW URINE, AT BEDSIDE, AMBULATED BACK TO BED AND REPOSITIONED FOR COMFORT, VSS, DENIES PAIN AT THIS TIME, WILL CONTINUE TO MONITOR
--- NOTE | 2019-06-04 23:00 | NUR ---
REASSESSMENT COMPLETE PER FLOW SHEET, NO ACUTE CHANGES FROM PRIOR ASSESSMENT, PT AWAKE AND ALERT, RESTING IN BED COMFORTABLY WATCHING FOOTBALL ON TV, DENIES PAIN OR NEEDS AT THIS TIME, I/S COMPLETED [id number] x10 WITH GOOD EFFORT, TCDB COMPLETED, VSS, NSR ON CM, CALL LIGHT IN REACH, BED ALARM ON, WILL CONTINUE TO MONITOR
[2019-06-05] VITALS (24 sets, daily range): BP systolic 91–125; BP diastolic 50–73
--- NOTE | 2019-06-05 01:00 | NUR ---
PT RESTING IN BED WITH EYES CLOSED, WAKES EASY WHEN RN ENTERS ROOM, AAOx4, DENIES PAIN OR NEEDS AT THIS TIME, VSS, NSR ON CM, I/S COMPLETED [id number] WITH GOOD EFFORT, TCDB COMPLETED, REPOSITIONED FOR COMFORT, CALL LIGHT IN REACH, WILL CONTINUE TO MONITOR
--- NOTE | 2019-06-05 03:00 | NUR ---
REASSESSMENT COMPLETE PER FLOW SHEET, PT RESTING WITH EYES CLOSED, WAKES EASY WITH MINIMAL STIMULI, AAOx4, DENIES PAIN AT THIS TIME, REPOSITIONED IN BED FOR COMFORT, I/S COMPLETED [id number] WITH GOOD EFFORT, TCDB COMPLETED, ALL DRSG'S C/D/I, VSS, NSR ON CM, LARGE CUP ICE WATER GIVEN PER REQUEST, CALL LIGHT IN REACH, WILL CONTINUE TO MONITOR
--- NOTE | 2019-06-05 04:55 | NUR ---
PT OOB TO BATHROOM WITH MINIMAL ASSIST, ABLE TO AMBULATE TO BATHROOM WITH STRONG GAIT AND BALANCE, CLEAR YELLOW VOID NOTED, ASSISTED BACK IN BED AND REPOSITIONED FOR COMFORT, VSS, NSR ON CM, WILL CONTINUE TO MONITOR
[2019-06-05 06:00] LABS: ALBUMIN 2.8 g/dL (3.4-5.0); ANION GAP 9.7 mmol/L (8-16); BILIRUBIN - TOTAL 2.03 mg/dL (0.2-1.3); CARBON DIOXIDE 31.2 mmol/L (21.0-32.0); CREATININE - SERUM 1.1 mg/dL (0.6-1.3); POTASSIUM - SERUM 3.9 mmol/L (3.5-5.1); PROTEIN - SERUM 5.7 g/dL (6.4-8.2)
--- NOTE | 2019-06-05 06:00 | NUR ---
PT OOB TO BEDSIDE CHAIR WITH MINIMAL ASSIST, REPOSITIONED FOR COMFORT, PT DENIES PAIN OR NEEDS AT THIS TIME, VSBrandon, ENR ON CM, ASKED PT IF HE WOULD LIKE A BATH BY RN OR WAIT FOR TO ASSIST, PT STSTED " WOULD LIKE TO WAIT FOR ." WILL NOTIFY DAY SHIFT RN, CALL LIGHT IN REACH, WILL CONTINUE TO MONITOR
--- NOTE | 2019-06-05 06:30 | NUR ---
CVL DRSG CHANGED USING STERIL TECHNIQUE, PT TOLLERATED WELL DENIES PAIN, DATE AND TIME PLACED ON DRSG, VSS
[2019-06-05 06:38] LABS: HEMATOCRIT 33.2 % (42.0-54.0); HEMOGLOBIN 11.2 g/dL (13.5-17.5); MCH 29.9 pg (26.0-34.0); MCHC 33.7 g/dL (31.0-37.0); MCV 88.8 fL (80.0-100.0); MEAN PLATELET VOLUME 9.8 fL (7.4-10.4); RBC 3.74 10x6/uL (4.20-6.10); RDW 14.5 % (11.5-14.5)
[2019-06-05 06:45] LABS: PLATELET COUNT 87 10x3/uL (130-400); WBC 7.1 10x3/uL (4.8-10.8)
--- NOTE | 2019-06-05 10:00 | NUR ---
BATH PRODUCTS SET UP. SPOUSE ASSISTED PT WITH BATH. INSTRUCTED SPOUSE HOW TO USE CHG CLENSER. COMPLETE LINEN CHANGE PROVIDED. WILL CONTINUE TO MONITOR.
[2019-06-05 11:19] LABS: PLATELET ESTIMATE DECREASED
--- NOTE | 2019-06-05 11:45 | NUR ---
AMBULATED TO RESTROOM WITH SPOUSE. MEAL TRAY DELIVERED AND SET UP. RE-ASSESSMENT COMPLETED. NO ACUTE CHANGES. VSS. WILL CONTINUE TO MONITOR.
--- NOTE | 2019-06-05 13:53 | NUR ---
APPEARS ASLEEP. VSS. SPOUSE AT BEDSIDE. WILL CONTINUE TO MONITOR.
--- NOTE | 2019-06-05 14:04 | TEE ---
PATIENT:NATALI RAPHAEL MEDICAL RECORD: [id number] LOCATION:[place] [address] AGE OF PATIENT: 53 ADMISSION DATE: 06/03/19 SEX: M REFERRING PHYSICIAN: INTERPRETING PHYSICIAN: VIET OROSCO MD TRANSESOPHAGEAL ECHOCARDIOGRAM Date: 06/03/19 GERALDINE CHARGE Y INDICATIONS: AVR PREMEDICATIONS: PATIENT'S RESPONSE PROCEDURE DOPPLER MEASUREMENTS: LVIT LA 3.4 PA RA LVOT RVOT Asc. Ao AV Gradient Peak AV Mean AV Area MV Gradient Peak MV Mean MV Area INTERPRETATION: Doppler: 2-D: COLOR FLOW DOPPLER NORMAL SALINE STUDY: MISCELLANOUS: DIAGNOSIS: PLAN: Textile Worker:1 Dr. Orosco Cotton Picker Operator: Carly RIDER COMMENTS: ALBERT AND MAK PATIENT DATE OF SERVICE: PROCEDURE: Transesophageal echo evaluation of valvular structures during aortic valve replacement and bypass surgery. FINDINGS: 1. Left ventricular chamber size is within normal limits. Left ventricular systolic function is normal. Overall ejection fraction estimated at 55% to 60%. 2. Left atrium, right atrium and right ventricular chamber sizes are within TRANSESOPHAGEAL ECHOCARDIOGRAM REPORT [id number] WILLIAMS RAPHAEL normal limits. 3. Valvular structures: Aortic valve demonstrates severe calcific aortic stenosis. This is not a new finding. The patient is scheduled for aortic valve replacement. The remaining valvular structures have normal structure and motion. 4. Doppler interrogation elsewise reveals moderate aortic insufficiency, mild mitral regurgitation, no other valvular insufficiency or stenosis. 5. No evidence of pericardial effusion or left ventricular thrombus. TRANSINT:[id number] Voice Confirmation ID: [id number] DOCUMENT ID: [id number] at 1404 CC: [id number] DICTATION DATE: 06/04/19 1006 RESIDENTIAL NURSE: 06/05/19 0750 ADM IN [place] [id number] [place] [address]
--- NOTE | 2019-06-05 19:00 | NUR ---
PT ASSESSMENT COMPLETED AT THIS TIME, NO CHANGES NOTED FROM NURSE REPORT, PT AAOX4 SITTING IN THE CHAIR, PT DENIES COMPLAINTS, NO DISTRESS NOTED, VSS, WILL MONITOR FOR CHANGES
--- NOTE | 2019-06-05 21:00 | NUR ---
PT GIVEN PO MEDS AT THIS TIME, PT DENIES COMPLAINTS, NO DISTRESS NOTED, VSS, WILL MONITOR FOR CHANGES
--- NOTE | 2019-06-05 23:00 | NUR ---
PT REASSESSMENT COMPLETED AT THIS TIME, NO CHANGES NOTED FROM PREVIOUS, NO DISTRESS NOTED, VSS, WILL MONITOR FOR CHANGES
[2019-06-06] VITALS (23 sets, daily range): BP systolic 94–130; BP diastolic 63–93
--- NOTE | 2019-06-06 01:00 | NUR ---
PT RESTING WITH EYES CLOSED RESP EVEN NON LABORED, VSS
--- NOTE | 2019-06-06 03:00 | NUR ---
PT REASSESSMENT COMPLETED AT THIS TIME, NO CHANGES AT THIS TIME, VSS
--- NOTE | 2019-06-06 05:01 | NUR ---
XRAY HERE AND PORT. CXR DONE, PT DENIES COMPLAINTS AT THIS TIME, VSS
[2019-06-06 06:11] LABS: HEMATOCRIT 32.2 % (42.0-54.0); HEMOGLOBIN 10.9 g/dL (13.5-17.5); MCH 29.9 pg (26.0-34.0); MCHC 33.9 g/dL (31.0-37.0); MCV 88.5 fL (80.0-100.0); MEAN PLATELET VOLUME 9.9 fL (7.4-10.4); RBC 3.64 10x6/uL (4.20-6.10); RDW 14.7 % (11.5-14.5); WBC 5.5 10x3/uL (4.8-10.8)
[2019-06-06 06:28] LABS: ALBUMIN 2.7 g/dL (3.4-5.0); BILIRUBIN - TOTAL 1.32 mg/dL (0.2-1.3); CALCIUM 8.4 mg/dL (8.5-10.1); CARBON DIOXIDE 32.8 mmol/L (21.0-32.0); CREATININE - SERUM 1.1 mg/dL (0.6-1.3); POTASSIUM - SERUM 3.8 mmol/L (3.5-5.1); PROTEIN - SERUM 6.2 g/dL (6.4-8.2)
--- NOTE | 2019-06-06 09:24 | NUR ---
NUTRITION F/U PT TOLERATING REG DIET WITH GOOD INTAKE BREAKFAST. WILL CONTINUE TO HONOR FOOD PREFERENCES, MONITOR PO INTAKE. RD FOLLOWING
--- NOTE | 2019-06-06 10:33 | NUR ---
1015: TEMP PACING WIRES DC'D BY DR. PRICE'S NURSE. 1030: R IJ DC'D. MANUAL PRESSURE HELD X 5 MIN. 2X2 DRESSING AND TEGADERM APPLIED.
[2019-06-06] MEDS ORDERED: AMIODARONE HCL200 MG PO (10:37)
[2019-06-06] MEDS ORDERED: PERCOCET 5-3251 TAB PO (13:19)
--- NOTE | 2019-06-06 19:00 | NUR ---
PT ASSESSMENT COMPLETED AT THIS TIME, NO CHANGES NOTED FROM NURSE REPORT, VSS, PT AAOX4, DENIES COMPLAINTS OR PROBLEMS, NO DISTRESS NOTED, WILL MONITOR FOR CHANGES
--- NOTE | 2019-06-06 20:54 | NUR ---
PT RETING IN BED WATCHING TV, NO COMPLAINTS VOICED AT THIS TIME, NO DISTRESS NOTED
--- NOTE | 2019-06-06 23:00 | NUR ---
PT REASSESSMENT COMPLETED A THIS TIME, NO CHANGES NOTED, VSS
[2019-06-07] VITALS (11 sets, daily range): BP systolic 110–130; BP diastolic 73–91
--- NOTE | 2019-06-07 01:00 | NUR ---
PT RESTING WITH EYES CLOSED, RESP EVEN AND NON LABORED, VSS
--- NOTE | 2019-06-07 01:00 | NUR ---
PT RESTING IN BED WITH EYES CLOSED, RESP EVEN AND NON LABORED, VSS
--- NOTE | 2019-06-07 01:50 | NUR ---
PT REQUESTED TO GET UP TO BEDSIDE CHAIR DUE TO HER BACK HURTING, PT WAS ASSITED UP TO CHAIR, NO DISTRESS NOTED
--- NOTE | 2019-06-07 03:00 | NUR ---
PT REASSESSMENT COMPLETED AT THIS TIME, NO CHANGES NOTED, VSS
--- NOTE | 2019-06-07 05:00 | NUR ---
PT RESTING WITH EYES CLOSED UP IN CHAIR, RESP EVEN NON LABORED, NO DISTRES NOTED, VSS
[2019-06-07 06:14] LABS: HEMATOCRIT 34.8 % (42.0-54.0); HEMOGLOBIN 11.8 g/dL (13.5-17.5); MCHC 33.9 g/dL (31.0-37.0); MCV 88.5 fL (80.0-100.0); MEAN PLATELET VOLUME 10.6 fL (7.4-10.4); RBC 3.93 10x6/uL (4.20-6.10); RDW 14.7 % (11.5-14.5); WBC 4.7 10x3/uL (4.8-10.8)
[2019-06-07 06:37] LABS: ALBUMIN 2.7 g/dL (3.4-5.0); ANION GAP 11.6 mmol/L (8-16); BILIRUBIN - TOTAL 1.24 mg/dL (0.2-1.3); CALCIUM 8.5 mg/dL (8.5-10.1); CARBON DIOXIDE 28.4 mmol/L (21.0-32.0); CREATININE - SERUM 1.3 mg/dL (0.6-1.3); PROTEIN - SERUM 6.4 g/dL (6.4-8.2)
--- NOTE | 2019-06-07 11:42 | NUR ---
1100: DR. PRICE HERE. REVIEWED DISCHARGE INSTRUCTIONS WITH PATIENT AND . 1120: REVIEWED DISCHARGE PAPERWORK WITH PATIENT AND . 1139: DISCHARGED HOME WITH . ESCORTED TO VEHICLE IN WHEELCHAIR.
--- NOTE | 2019-06-07 11:48 | MORECARE ---
CASE MANAGEMENT DISCHARGE SUMMARY PATIENT: NATALI RAPHAEL UNIT: [id number] ADM DATE: 06/03/19 AGE: 53 : 63 SEX: M [facility]: [facility] AUTHOR: RUPERT RAMIREZ PHYSICIAN: REFERRING PHYSICIAN: BELÉN PRICE MD DATE OF SERVICE: 06/07/19 Discharge Plan Patient Name: NATALI RAPHAEL Facility: [facility]:[place] : 1965 Planned Disposition: Anticipated Discharge Date: 06/07/19 Discharge Date: 06/07/2019 Expected LOS: 4 Initial Reviewer: [email or web address] Initial Review Date: 06/07/2019 Generated: 06/07/19 12:47 pm Comments DCP- Discharge Planning Updated by [email or web address]: Maegan Garcia on 06/07/19 10:[address] Patient Name: NATALI RAPHAEL Admission Status: Urgent Accout number: [id number] Admission Date: 06-03-2019 : 1965 Admission Diagnosis: Attending: BELÉN PRICE Current LOS: 4 Anticipated DC Date: 06-07-2019 Planned Disposition: Primary Insurance: [employer] O Discharge Planning Comments: CM met with patient at bedside after explaining CM role and obtaining verbal consent. CM discussed availability / needs of home health, REHAB and medical equipment. PATIENT DENIES ANY DISCHARGE NEEDS. Cloth Classer: Maegan Garcia DCPIA - Discharge Planning Initial Assessment Updated by [email or web address]: Maegan Garcia on 06/07/19 11:44 am * Is the patient Alert and Oriented? Yes * PCP [facility] * Pharmacy [facility] * Preadmission Environment Home with Family * ADLs Independent * Other Equipment NONE * Community resources currently utilized None * Additional services required to return to the preadmission environment? No * Can the patient safely return to the preadmission environment? Yes * Has this patient been hospitalized within the prior 30 days at any hospital? No Patient Name: NATALI RAPHAEL Page [phone] at 1148 All edits/amendments must be made on the electronic document DICTATION DATE: 06/07/19 1147 HOME CARE ASSISTANT: DM 06/07/19 1147 RPT#: [id number] DC DATE:06/07/19 STATUS: DIS IN [facility] [address] [place] [address] END OF REPORT
== END 2019-06-07 11:39 | disposition home or self-care (01) | DRG 221 ==
LOC: D.CVICU 06-03 05:00 → D.SDCHOLD 06-03 05:00 → D.CVICU 06-03 10:18 → D.SDCHOLD 06-03 14:00 → D.CVICU 06-07 11:39
PROVIDERS: ADMIT Thoracic Surgery (Cardiothoracic Vascular Surgery); ATTEND Thoracic Surgery (Cardiothoracic Vascular Surgery)
PROC: 5A1221Z Performance of Cardiac Output, Continuous (ICD-10-PCS; 2019-06-03)
PROC: 02RF0JZ Replacement of Aortic Valve with Synthetic Substitute, Open Approach (ICD-10-PCS; principal; 2019-06-03 07:30)
DX: I35.1 Nonrheumatic aortic (valve) insufficiency (principal); I25.10 Atherosclerotic heart disease of native coronary artery without angina pectoris; E11.9 Type 2 diabetes mellitus without complications; E78.5 Hyperlipidemia, unspecified; I10 Essential (primary) hypertension

== ENCOUNTER 2020-07-28 05:25 | Observation (INO) | payer BC ==
[~2020-07-28] VITALS: Ht 182.9 cm; Wt 87.9 kg
--- NOTE | ~2020-07-28 | HP ---
PATIENT: NATALI RAPHAEL MEDICAL RECORD: [id number] ACCOUNT: [id number] LOCATION:. [address] : 63 ADMISSION DATE: 07/28/20 PCP: CHAD MOODY MD HISTORY AND PHYSICAL EXAMINATION REASON FOR ADMISSION: Acute vertigo with near syncope. HISTORY OF PRESENT ILLNESS: The patient is a 54-year-old male with cardiac history. He had an aortic valve replacement, tissue valve 2 years ago. Most recent echo was unremarkable. He has been having fatigue again which reminded him of his previous cardiac symptoms. He had a previous LAD stent. He had a cardiac catheterization by Dr. Butt in May of this year that showed his LAD stent was patent. He has been feeling better and this morning was loading his car with baggage to go on a trip to [place]. When he came back, took 40 steps from his car in the house he got acute vertigo symptoms, room was spinning, diaphoresis and vomiting, did not lose consciousness, but had to lean over the dryer in his wash room to catch his breath. For that reason, he came to the ED. He denies any recent exertional chest pain or palpitations. PAST MEDICAL HISTORY: LAD CAD, post-PTCA with negative catheterization in May of 2020. Aortic valve replacement with tissue valve. Anterior cervical fusion, history of depression, allergic rhinitis, aortic insufficiency, osteoarthritis, hyperlipidemia, situational depression, diverticulosis, epicondylitis, GERD, Helicobacter pylori gastritis, sensorineural hearing loss, and tic disorder resolved. PAST SURGICAL HISTORY: PTCA as above LAD. Aortic valve replacement and anterior cervical fusion. ALLERGIES: KLONOPIN, PRAVASTATIN, AND SOMA. FAMILY HISTORY: Mother in her 80s and history of breast cancer, dementia. Father is alive with history of cancer of the prostate, colon cancer. His maternal and paternal grandmothers are both alive. Paternal grandmother history of CAD and myocardial infarction. SOCIAL HISTORY: Nonsmoker, nondrinker. He is , gainfully employed. MEDICATIONS: Lopressor 25 mg daily, simvastatin 40 mg at bedtime, Voltaren 100 mg p.o. daily PC, Nexium 40 mg daily, levothyroxine 25 mcg p.o. q.a.m. AC. Testosterone 2 mg IM every 3 weeks. REVIEW OF SYSTEMS: GENERAL: Fatigue. No fever. HEENT: No recent visual change, sinus congestion, sore throat, or hearing difficulty. RESPIRATORY: No severe cough or exertional chest pain, claudication, palpitations. GASTROINTESTINAL: No nausea, vomiting, change in stools, blood per rectum prior to this episode of vertigo. GENITOURINARY: No nocturia or dysuria. Denies ED. MUSCULOSKELETAL: He has arthritis in the C-spine without reticulations. PSYCHIATRIC: Denies depressed mood. PHYSICAL EXAMINATION: HISTORY AND PHYSICAL [id number] NATALI RAPHAEL VITAL SIGNS: His weight is 189. Blood pressure is 140/101, heart rate 86 and regular. Height is 72 inches. BMI is 25.6. GENERAL: The patient is alert and oriented. No acute distress at this time. EYES: Clear. NECK: Limited range of motion. No bruits. CHEST: Clear. CARDIOVASCULAR: Regular, without murmur. ABDOMEN: Soft. NEUROLOGIC: Grossly intact. Gait was not tested. DTRs symmetrical neurologically. His hearing is decreased bilaterally. LABORATORY DATA: Labs shows H and H of 15 and 45.9 respectively. Potassium is low at 3.4 and creatinine 1.4. Liver functions were normal. Lactic acid 1.6. Total bilirubin is 1.66. Cardiac enzymes are negative. Chest x-ray unremarkable. EKG; sinus rhythm. ASSESSMENT: 1. Syncopal episode, most likely due to severe vertigo but currently asymptomatic. 2. History of LAD-CAD, clinically asymptomatic. 3. Hypertension. 4. Hyperlipidemia. 5. Aortic valve replacement, clinically stable. 6. Hypothyroidism. PLAN: The patient will be admitted to observation for cardiac monitoring to rule out arrhythmia. Cardiology consult. We will check CT of head as well. TRANSINT:[id number] Voice Confirmation ID: [id number] DOCUMENT ID: [id number] CHAD MOODY MD CC: [id number] DICTATION DATE: 07/28/201653 LOWERATOR OPERATOR: 07/28/202044 ADM IN [place] [id number] [place] [address]
[~2020-07-28 05:25] MED LIST changes: +AMIODARONE HCL200 MG PO; +DICLOFENAC SOD100 MG PO; -LOPRESSOR25 MG PO; +PERCOCET 5-3251 TAB PO; +TOPROL XL25 MG PO; -VOLTAREN75 MG PO
[2020-07-28] MEDS ORDERED: TIROSINT13 MCG (05:34)
[2020-07-28 06:08] LABS: CALC OSMOLALITY 279 mosm/kg (275-300); CALCIUM 8.9 mg/dL (8.5-10.1); CARBON DIOXIDE 23.6 mmol/L (21.0-32.0); CHLORIDE - SERUM 103 mmol/L (98-107); CREATININE - SERUM 1.4 mg/dL (0.6-1.3); GLUCOSE 140 mg/dL (74-106); POTASSIUM - SERUM 3.4 mmol/L (3.5-5.1); SODIUM 138 mmol/L (136-145); UREA NITROGEN 17 mg/dL (7-18); eGFR NON AFRICAN AMERICAN 56 mL/min (90-120)
[2020-07-28 06:19] LABS: INR 1.08 (0.85-1.17)
[2020-07-28 06:20] LABS: D-DIMER-QUANTITATIVE < 0.27 ug/mLFEU (0.20-0.54)
[2020-07-28 06:22] LABS: BASOPHILS 0.2 % (0-2); EOSINOPHILS 3.5 % (0-7); HEMATOCRIT 45.9 % (42.0-54.0); HEMOGLOBIN 15.4 g/dL (13.5-17.5); IMMATURE GRANULOCYTES 0.2 % (0-5); LYMPHOCYTE ABS# 1.62 10x3/uL (1.32-3.57); LYMPHOCYTES 28.1 % (15-50); MCH 29.1 pg (26.0-34.0); MCHC 33.6 g/dL (31.0-37.0); MCV 86.6 fL (80.0-100.0); MEAN PLATELET VOLUME 10.7 fL (7.4-10.4); MONOCYTES 9.4 % (2-11); NEUTROPHIL ABS# 3.38 10x3/uL (1.78-5.38); NEUTROPHILS 58.6 % (40-80); RDW 15.9 % (11.5-14.5); WBC 5.8 10x3/uL (4.8-10.8)
[2020-07-28 06:23] LABS: ALBUMIN 4.1 g/dL (3.4-5.0); ALKALINE PHOSPHATASE 82 U/L (30-120); ALT (SGPT) 52 U/L (10-68); BILIRUBIN - TOTAL 1.66 mg/dL (0.2-1.3); LIPASE 120 U/L (73-393); MAGNESIUM - SERUM 2.2 mg/dL (1.8-2.4); PRO BNP 24 pg/mL (0-125); PROTEIN - SERUM 7.1 g/dL (6.4-8.2); THYROID STIMULATING HORMONE 3.15 uIU/mL (0.36-3.74); TROPONIN-I < 0.017 ng/mL (0.000-0.060)
[2020-07-28 06:26] LABS: C-REACTIVE PROTEIN < 0.2 mg/dL (0.0-0.9)
[2020-07-28 06:41] LABS: PLATELET COUNT 198 10x3/uL (130-400)
[2020-07-28 07:00] VITALS: BP 148/99
[2020-07-28 07:01] LABS: BILIRUBIN NEGATIVE (NEGATIVE); KETONE SMALL mg/dL (NEGATIVE); NITRITE NEGATIVE (NEGATIVE); SQUAMOUS EPITHELIAL RARE HPF (0-4); UROBILINOGEN NORMAL mg/dL (< 2); WHITE CELLS - URINE 0-5 HPF (0-1)
[2020-07-28 07:02] LABS: BACTERIA FEW HPF (NONE SEEN)
--- NOTE | 2020-07-28 08:09 | NUR ---
CONSULT SENT TO DR CORADO WITH INPT ROOM NUMBER [id number] GIVEN
--- NOTE | 2020-07-28 09:02 | NUR ---
TOOK REPORT FROM JACQUES MAHAN.
[2020-07-28 09:15] VITALS: BP 148/99
--- NOTE | 2020-07-28 09:15 | NUR ---
RCVD FROM ER VIA W/C IN STABLE CONDITION, ORIENTED TO UNIT/BED/ROUTINE, PT IS CURRENTLY LYING IN BED, AWAKE/ALERT/ORIENTED, T/R SELF AD AUTUMN, CONT OF B/B WITH BRPs PER SELF AD AUTUMN, NO S/S OF ACUTE DISTRESS OBSERVED.
[2020-07-28 09:44] VITALS: BP 148/99
[2020-07-28 10:22] VITALS: BP 148/99; BMI 26.3
[2020-07-28 15:29] VITALS: Ht 182.9 cm; Wt 87.9 kg
[2020-07-28 15:55] VITALS: BP 136/93
--- NOTE | 2020-07-28 19:30 | NUR ---
PT IN BED, AAO X 3, RESP EVEN AND UNLABORED, NO DISTRESS NOTED, CL IN REACH, SR UP X 2.
[2020-07-28 21:34] VITALS: BP 135/83
[2020-07-29 00:40] VITALS: BP 113/71
--- NOTE | 2020-07-29 04:08 | NUR ---
I have reviewed this patient and I concur with the Shift Assessment completed by the Licensed Practical Nurse today this shift.
[2020-07-29 06:06] VITALS: BP 120/85
[2020-07-29 07:00] VITALS: BP 116/79
--- NOTE | 2020-07-29 07:40 | NUR ---
LYING IN BED, AWAKE/ALERT/ORIENTED, T/R SELF AD AUTUMN, CONT OF B/B WITH BRPs AD AUTUMN, DENIES PAIN/OTHER DISCOMFORT AT THIS TIME, CALL LIGHT/PHONE/WATER WITHIN REACH, NO S/S OF ACUTE DISTRESS OBSERVED.
[2020-07-29] MEDS ORDERED: TOPROL XL25 MG PO (07:50)
[2020-07-29] MEDS ORDERED: LOW DOSE ASPIRI81 M1 PO (07:50)
[2020-07-29] MEDS ORDERED: SYNTHROID25 MCG PO (07:51)
--- NOTE | 2020-07-29 09:19 | MORECARE ---
CASE MANAGEMENT DISCHARGE SUMMARY PATIENT: NATALI RAPHAEL UNIT: [id number] ADM DATE: 07/28/20 AGE: 54 : 63 SEX: M ROOM/BED: D.2113 AUTHOR: RUPERT RAMIREZ PHYSICIAN: REFERRING PHYSICIAN: CHAD ROGERS MD DATE OF SERVICE: 07/29/20 Discharge Plan Patient Name: NATALI RAPHAEL Facility: [facility]:[place] : 1965 Planned Disposition: Home Anticipated Discharge Date: Discharge Date: Expected LOS: Initial Reviewer: [email or web address] Initial Review Date: 07/29/2020 Generated: 07/29/20 10:18 am Comments DCP- Discharge Planning Updated by [email or web address]: Linda Brooks on 07/29/20 8:[address] Patient Name: NATALI RAPHAEL Admission Status: ER Accout number: [id number] Admission Date: 07-28-2020 : 1965 Admission Diagnosis: Attending: CHAD ROGERS Current LOS: 1 Anticipated DC Date: Planned Disposition: Home Primary Insurance: [employer] O Discharge Planning Comments: CM met with patient to complete initial dc planning assessment. CM educated patient on the CM role and verbal consent given by patient to complete assessment. CM verified patient's address, phone number, and emergency contact phone numbers. Patient lives at home with spouse. At discharge patient plans to return and feels this is a safe discharge. CM discussed availability of home health, rehab services, and medical equipment. Patient denied known discharge needs at this time. Transportation provider at discharge will be his spouse. CM will continue to follow and will assist as needed with dc plans/needs. Dock Loader: Linda Brooks DCPIA - Discharge Planning Initial Assessment Updated by [email or web address]: Linda Brooks on 07/29/20 9:17 am * Is the patient Alert and Oriented? Yes * How many steps to enter\exit or inside your home? 0/0 * PCP Dr. Rogers * Pharmacy [facility] * Preadmission Environment Home with Family * ADLs Independent * Equipment None * List name and contact numbers for known caregivers / representatives who currently or will assist patient after discharge: Luz Elena - spouse - [phone] * Verbal permission to speak to the caregivers and representatives has been obtained from the patient. Yes * Community resources currently utilized None * Additional services required to return to the preadmission environment? No * Can the patient safely return to the preadmission environment? Yes * Has this patient been hospitalized within the prior 30 days at any hospital? No Patient Name: NATALI RAPHAEL Page [phone] at 0919 All edits/amendments must be made on the electronic document DICTATION DATE: 07/29/20918 TECHNICAL MANAGER: SARAH 07/29/20918 RPT#: [id number] DC DATE: STATUS: ADM IN [facility] [address] [place] [address] END OF REPORT
--- NOTE | 2020-07-29 10:47 | NUR ---
DISCONTINUED IV ACCESS/CARDIAC TELEMETRY MONITORING, PROVIDED DISCHARGE INSTRUCTIONS/EDUCATION TO WHICH PT VOICED UNDERSTANDING, CALL LIGHT/PHONE/WATER WITHIN REACH, NO S/S OF ACUTE DISTRESS OBSERVED.
--- NOTE | 2020-07-29 10:50 | NUR ---
DISCHARGED HOME TO SELF CARE IN STABLE CONDITION VIA W/C ACCOMPANIED BY HOSPITAL STAFF, NO S/S OF ACUTE DISTRESS OBSERVED.
--- NOTE | 2020-07-30 10:07 | MORECARE ---
CASE MANAGEMENT DISCHARGE SUMMARY PATIENT: NATALI RAPHAEL UNIT: [id number] ADM DATE: 07/28/20 AGE: 54 : 63 SEX: M ROOM/BED: D.2113 AUTHOR: RUPERT RAMIREZ PHYSICIAN: REFERRING PHYSICIAN: CHAD ROGERS MD DATE OF SERVICE: 07/30/20 Discharge Plan Patient Name: NATALI RAPHAEL Facility: [facility]:[place] : 1965 Planned Disposition: Home Anticipated Discharge Date: Discharge Date: 07/29/2020 Expected LOS: Initial Reviewer: [email or web address] Initial Review Date: 07/29/2020 Generated: 07/30/20 11:07 am Comments DCP- Discharge Planning Updated by [email or web address]: Linda Brooks on 07/29/20 8:[address] Patient Name: NATALI RAPHAEL Admission Status: ER Accout number: [id number] Admission Date: 07-28-2020 : 1965 Admission Diagnosis: Attending: CHAD ROGERS Current LOS: 1 Anticipated DC Date: Planned Disposition: Home Primary Insurance: [employer] [facility] Discharge Planning Comments: CM met with patient to complete initial dc planning assessment. CM educated patient on the CM role and verbal consent given by patient to complete assessment. CM verified patient's address, phone number, and emergency contact phone numbers. Patient lives at home with spouse. At discharge patient plans to return and feels this is a safe discharge. CM discussed availability of home health, rehab services, and medical equipment. Patient denied known discharge needs at this time. Transportation provider at discharge will be his spouse. CM will continue to follow and will assist as needed with dc plans/needs. Exercise Science Instructor: Linda Brooks DCPIA - Discharge Planning Initial Assessment Updated by [email or web address]: Linda Brooks on 07/29/20 9:17 am * Is the patient Alert and Oriented? Yes * How many steps to enter\exit or inside your home? 0/0 * PCP Dr. Rogers * Pharmacy [facility] * Preadmission Environment Home with Family * ADLs Independent * Equipment None * List name and contact numbers for known caregivers / representatives who currently or will assist patient after discharge: Luz Elena [facility] - [phone] * Verbal permission to speak to the caregivers and representatives has been obtained from the patient. Yes * Community resources currently utilized None * Additional services required to return to the preadmission environment? No * Can the patient safely return to the preadmission environment? Yes * Has this patient been hospitalized within the prior 30 days at any hospital? No Last DP export: 07/29/20 8:19 am Patient Name: NATALI RAPHAEL Page [phone] at 1007 All edits/amendments must be made on the electronic document DICTATION DATE: 07/30/20 1007 IT SUPPORT ENGINEER: DM 07/30/20 [facility] RPT#: [id number] DC DATE:07/29/20 STATUS: DIS IN [facility] [address] [place] [address] END OF REPORT
== END 2020-07-29 10:50 | disposition home or self-care (01) ==
LOC: D.ER 05:25 → D.M2 06:28 → D.EDHOLD 06:28 → D.M2 07:56 → OBSVTIME 09:15 → D.M2 07-29 10:50
PROVIDERS: Family Medicine; ADMIT Family Medicine; ATTEND Family Medicine
DX: R55 Syncope and collapse (principal); I10 Essential (primary) hypertension; E78.5 Hyperlipidemia, unspecified; E03.9 Hypothyroidism, unspecified; K21.9 Gastro-esophageal reflux disease without esophagitis; I25.10 Atherosclerotic heart disease of native coronary artery without angina pectoris; E87.6 Hypokalemia